=== PATIENT | female | born 1940 | race Caucasian/White ===

== ENCOUNTER 2022-11-15 23:42 | Inpatient (IN) ==
[2022-11-15] MEDS ORDERED: fentaNYL 100 MCG/2 ML VIAL IV ONE (23:45)
--- NOTE | 2022-11-15 23:46 | Emergency Department Note ---
HPI General Chief complaint: Extremity Injury, Lower Stated complaint: hip pain Time Seen by Provider: 11/15/22 23:44 History of Present Illness HPI Narrative: Narrative: Patient is an 82-year-old female with a history of hypertension and COPD who presents to the emergency department due to a fall. She states that she tripped over her dog and fell on her right side. She states that she now has right thigh pain. Patient's son does state that when she fell she did hit the right side of her head. Patient denies loss of consciousness. She denies headache, nausea, and vomiting. She does endorse some back and chest pain that started after fall. She denies any other symptoms at this time. Related Data Home Medications Medication Instructions Recorded Confirmed amlodipine 5 mg tablet 5 mg PO QDAY 01/07/21 06/08/22 clopidogrel 75 mg tablet 75 mg PO QDAY 01/07/21 06/08/22 isosorbide mononitrate 30 mg 30 mg PO QDAY 01/07/21 06/08/22 tablet,extended release 24 hr nitroglycerin 0.4 mg sublingual 0.4 mg sublingual Q5M PRN 01/07/21 06/08/22 tablet aspirin 81 mg tablet,delayed 162 mg PO QDAY 06/11/21 06/08/22 release (Adult Low Dose Aspirin) Previous Rx's Medication Instructions Recorded albuterol sulfate 90 mcg/actuation 2 puff inhalation Q6H PRN 02/12/21 aerosol inhaler shortness of breath or wheezing #8.5 grams fluticasone fur. 100 mcg-umeclid 1 inh inhalation Q24H #60 ea 08/06/21 62.5 mcg-vilant 25 mcg inhalat.powder (Trelegy Ellipta) albuterol sulfate 90 mcg/actuation 2 puff inhalation Q6H PRN 06/08/22 aerosol inhaler shortness of breath or wheezing #8.5 grams Allergies Allergy/AdvReac Type Severity Reaction Status Date / Time Iodinated Contrast Media Allergy Verified 11/16/22 02:19 Review of Systems ROS ROS Narrative: Narrative: Constitutional: Denies fever or weakness Eyes: Denies eye pain or vision change ENT ED: Denies throat pain or rhinorrhea Cardiovascular: Reports chest pain; Denies dyspnea on exertion, orthopnea or edema Respiratory: Denies shortness of breath or cough Gastrointestinal: Denies abdominal pain, nausea, vomiting, diarrhea, constipation, hematochezia or melena Musculoskeletal: Reports back pain; Denies myalgia Integumentary: Denies rash or lesions Neurological: Denies headache, weakness, numbness, confusion, abnormal gait or dizziness PFSH Narrative Patient History Narrative: Narrative: Medical/Surgical/Family History All Active Problems (Updated 11/16/22 @ 02:33 by Dontae Rodriguez MD) Carrie-prosthetic femoral shaft fracture (Acute) Chronic hyperventilation (Acute) Atherosclerotic vascular disease (Acute) Memory loss (Chronic) Dyspnea (Chronic) Chest pain (Chronic) Sneezing (Chronic) Coughing (Chronic) Hoarseness of voice (Chronic) Diarrhea (Chronic) Chest congestion (Chronic) Coagulation defect, unspecified (Chronic) Hypertension (Chronic) Chronic obstructive pulmonary disease with (acute) exacerbation (Chronic) Aortic aneurysm (Chronic) Peripheral vascular disease, unspecified (Chronic) Paresthesia of hand, bilateral (Chronic) Chronic stable angina (Chronic) Dementia in other diseases classified elsewhere without behavioral disturbance (Chronic) COPD (chronic obstructive pulmonary disease) (Chronic) Medical History Aortic aneurysm Atherosclerotic vascular disease Chest congestion Chest pain Chronic hyperventilation Chronic obstructive pulmonary disease with (acute) exacerbation Chronic stable angina Coagulation defect, unspecified COPD (chronic obstructive pulmonary disease) Coughing Dementia in other diseases classified elsewhere without behavioral disturbance Diarrhea Dyspnea Hoarseness of voice Hypertension Memory loss Paresthesia of hand, bilateral Peripheral vascular disease, unspecified Sneezing Surgical History History of femur fracture Repaired History of heart artery stent History of partial hysterectomy History of surgery leg stent splacements History of tonsillectomy Family History Father Heart disease Sister Diabetes Son Atrial fibrillation Social History Smoking Status: Former smoker Alcohol Intake Frequency: a few times a week Substance Use: does not use Exam Narrative Narrative: Narrative: General General appearance: Present alert and in no apparent distress; Absent anxious, appears intoxicated or sleepy Head Head: Present atraumatic and normocephalic Eye Eye: Present EOMI; Absent scleral icterus or nystagmus ENT ENT: Present mucous membranes moist; Absent nasal congestion Neck Neck: Present full ROM and trachea midline; Absent tenderness Chest Chest: Present normal inspection and symmetric chest wall rise; Absent tenderness Respiratory Respiratory: Present normal lung sounds bilaterally; Absent respiratory distre ss, rales/crackles, wheezes, stridor or accessory muscle use Cardiovascular Cardiovascular: Present regular rate, normal rhythm and normal heart sounds Adbominal Abdominal: Present soft and normal bowel sounds; Absent distention or tenderness Extremities Extremities: Present normal inspection, full ROM and tenderness (Right anterior thigh); Absent pedal edema or pretibial edema Back Back: Present normal inspection and full ROM; Absent tenderness, L-S tenderness or spinous process tenderness Neurological Neurological: Present alert and oriented X3; Absent motor sensory deficit Psychiatric Psychiatric: Present normal affect and normal mood Skin Skin: Present warm (WNL), dry and normal color Course Vital Signs Vital signs: Vital Signs Temperature 97.6 F 11/15/22 23:43 Pulse Rate 75 11/15/22 23:43 Respiratory Rate 20 11/15/22 23:43 Blood Pressure 131/65 11/15/22 23:43 Pulse Oximetry (%) 94 11/15/22 23:43 Oxygen Delivery Method Room Air 11/15/22 23:43 Temperature 97.6 F 11/15/22 23:43 Pulse Rate 80 11/16/22 02:18 Respiratory Rate 17 11/16/22 00:27 Blood Pressure 136/51 11/16/22 02:02 Pulse Oximetry (%) 96 11/16/22 02:18 Oxygen Delivery Method Room Air 11/15/22 23:43 [facility] MDM Narrative Medical decision making narrative: Narrative: Patient is an 82-year-old female who presents to the emergency department due to fall. Differential diagnoses include femoral fracture and soft tissue injury. Patient has received fentanyl. She did have a brief period of decreased oxygen saturation. 3 L of oxygen was then given via nasal cannula. Patient's labs demonstrate anemia with a hemoglobin of 9. Femoral x-ray does demonstrate periprosthetic oblique femoral fracture. I have spoken with Dr. Shi who has agreed to see patient. He has requested admission by the hospitalist team. I did speak to Dr. Eldridge and he has also agreed with admission at this time. Lab Data 11/15/22 23:59 Labs: Lab Results 11/15/22 11/15/22 11/16/22 Range/Units 23:59 23:59 00:04 WBC 10.4 (4.5-11.0) K/mcL RBC 3.15 L (3.59-5.38) M/mcL Hgb 9.3 L (11.2-15.7) g/dL Hct 29.5 L (34.1-44.9) % POC Hct 27.0 L (36-48) MCV 93.7 (80.0-100.0) fL MCH 29.5 (26.0-34.0) pg MCHC 31.5 (31.0-36.0) g/dL RDW 13.8 (11.5-14.5) % Plt Count 159 (140-440) K/mcL MPV 10.2 (8.8-12.5) fL Immature Gran % (Auto) 0.5 (0.0-0.5) % Neut % (Auto) 84.1 H (38.0-78.0) % Lymph % (Auto) 9.2 L (15.5-49.0) % [place] % (Auto) 5.3 (1.0-12.0) % Eos % (Auto) 0.6 (0.0-7.0) % Baso % (Auto) 0.3 (0.0-2.0) % Lymph # (Auto) 0.95 L (1.50-4.80) K/mcL [place] # (Auto) 0.55 (0.10-0.90) K/mcL Eos # (Auto) 0.06 (0.00-0.70) K/mcL Baso # (Auto) 0.03 (0.00-0.30) K/mcL Immature Gran # 0.05 (0.00-0.05) K/mcl Absolute Neutrophils 8.71 H (1.80-8.00) K/mcL PT 16.6 H (11.9-14.5) sec INR 1.3 H (0.9-1.1) APTT 28.6 (20.0-37.0) sec POC Sodium 141 (133-145) POC Potassium 3.7 (3.3-5.1) POC Chloride 112 H (96-108) POC Total CO2 19.0 L (22-30) POC BUN 26 H (6-20) POC Creatinine 1.3 H (0.6-1.2) POC Glucose 161 H (70-105) POC WB Ioniz Calcium 1.12 L (1.16-1.32) POC Troponin I (0.00-0.08) 11/16/22 Range/Units 00:12 WBC (4.5-11.0) K/mcL RBC (3.59-5.38) M/mcL Hgb (11.2-15.7) g/dL Hct (34.1-44.9) % POC Hct (36-48) MCV (80.0-100.0) fL MCH (26.0-34.0) pg MCHC (31.0-36.0) g/dL RDW (11.5-14.5) % Plt Count (140-440) K/mcL MPV (8.8-12.5) fL Immature Gran % (Auto) (0.0-0.5) % Neut % (Auto) (38.0-78.0) % Lymph % (Auto) (15.5-49.0) % [place] % (Auto) (1.0-12.0) % Eos % (Auto) (0.0-7.0) % Baso % (Auto) (0.0-2.0) % Lymph # (Auto) (1.50-4.80) K/mcL [place] # (Auto) (0.10-0.90) K/mcL Eos # (Auto) (0.00-0.70) K/mcL Baso # (Auto) (0.00-0.30) K/mcL Immature Gran # (0.00-0.05) K/mcl Absolute Neutrophils (1.80-8.00) K/mcL PT (11.9-14.5) sec INR (0.9-1.1) APTT (20.0-37.0) sec POC Sodium (133-145) POC Potassium (3.3-5.1) POC Chloride (96-108) POC Total CO2 (22-30) POC BUN (6-20) POC Creatinine (0.6-1.2) POC Glucose (70-105) POC WB Ioniz Calcium (1.16-1.32) POC Troponin I < 0.02 (0.00-0.08) EKG Data EKG #1: EKG attestation: Yes I reviewed and interpreted this EKG. EKG results narrative: Normal sinus rhythm with a rate of 64, normal axis, MN 137, QRS of 99, QTc of 481, T wave flattening in lead I, T wave inversion in lead aVL, J-point elevation in V2 of [address] elevation or depression otherwise. Discharge Plan Patient/Caregiver Discharge Instructions Pt seen by DERRICK CAR OPERATOR/PA only: No Clinical Impression: Carrie-prosthetic femoral shaft fracture Patient Disposition: Xfer As Inpt ([facility]) Follow up with: Gabriel Cobb [Primary Care Provider] - Prescriptions: No Action Trelegy Ellipta 100-62.5-25 mcg blister with device 1 inh inhalation Q24H Qty: 60 12RF amlodipine 5 mg tablet 5 mg PO QDAY isosorbide mononitrate 30 mg tablet extended release 24 hr 30 mg PO QDAY clopidogrel 75 mg tablet 75 mg PO QDAY nitroglycerin 0.4 mg tablet, sublingual 0.4 mg sublingual Q5M PRN Rx Instructions: do not exceed 3 doses per episode aspirin [Adult Low Dose Aspirin] 81 mg tablet,delayed release (DR/EC) 162 mg PO QDAY albuterol sulfate 90 mcg/actuation HFA aerosol inhaler 2 puff inhalation Q6H PRN (Reason: shortness of breath or wheezing) Qty: 8.5 12RF albuterol sulfate 90 mcg/actuation HFA aerosol inhaler 2 puff inhalation Q6H PRN (Reason: shortness of breath or wheezing) Qty: 8.5 2RF
[2022-11-15] MEDS ORDERED: 0.9 % SODIUM CHLORIDE 500 ML IV ONE (23:59)
[2022-11-15] MEDS ORDERED: ONDANSETRON 4 MG/2 ML VIAL IV ONE (23:59)
[2022-11-16 00:09] LABS: POC Calcium, Ionized 1.12 (1.16-1.32); POC Creatinine 1.3 (0.6-1.2); POC Potassium 3.7 (3.3-5.1)
[2022-11-16 00:53] LABS: Basophils # (Auto) 0.03 K/mcL (0.00-0.30); Basophils % (Auto) 0.3 % (0.0-2.0); Eosinophils # (Auto) 0.06 K/mcL (0.00-0.70); Eosinophils % (Auto) 0.6 % (0.0-7.0); Hematocrit 29.5 % (34.1-44.9); Hemoglobin 9.3 g/dL (11.2-15.7); Lymphocytes # (Auto) 0.95 K/mcL (1.50-4.80); Lymphocytes % (Auto) 9.2 % (15.5-49.0); Mean Cell Volume 93.7 fL (80.0-100.0); Mean Corpuscular HGB Conc 31.5 g/dL (31.0-36.0); Mean Platelet Volume 10.2 fL (8.8-12.5); Monocytes # (Auto) 0.55 K/mcL (0.10-0.90); Monocytes % (Auto) 5.3 % (1.0-12.0); Neutrophils % (Auto) 84.1 % (38.0-78.0); Platelet Count 159 K/mcL (140-440); RBC 3.15 M/mcL (3.59-5.38); Red Cell Distribution Width 13.8 % (11.5-14.5); WBC 10.4 K/mcL (4.5-11.0)
[2022-11-16 01:00] LABS: INR 1.3 (0.9-1.1); Prothrombin Time 16.6 sec (11.9-14.5)
[2022-11-16 01:09] LABS: Partial Thromboplastin Time 28.6 sec (20.0-37.0)
[2022-11-16] MEDS ORDERED: ONDANSETRON 4 MG/2 ML VIAL IV ONE (01:54)
[2022-11-16] MEDS: morphine 2 MG/ML VIAL IV PRN ×5 (02:15→12:41)
[2022-11-16] MEDS: LACTATED RINGERS 1,000 ML IV SCH ×3 (02:15→20:08)
[2022-11-16] MEDS: IPRATROPIUM/ALBUTEROL 3 ML AMPUL.NEB NEB SCH ×2 (03:45→13:55)
--- NOTE | 2022-11-16 05:22 | Cat Scan Report ---
INDICATION: Fall, hit head COMPARISON: None. TECHNIQUE: Axial noncontrast-enhanced images through the brain. Sagittally and coronally reformatted images. FINDINGS: Examination was initially interpreted by [facility] Cerebral hemispheres:Negative. No intra-axial abnormality. No intra-axial hematoma. No localized mass effect.No acute posttraumatic intra-axial abnormality Brain volume is within normal limits for age. There is extensive white matter abnormality within both cerebral hemispheres. Findings are consistent with small vessel ischemic change in this 82 patient. No posttraumatic intra-axial abnormality. Brainstem and cerebellum:No intra-axial abnormality Extra-axial:No acute hemorrhage. No subdural or epidural hematoma. No subarachnoid hemorrhage. Basilar cisterns are normal Calvarial:No calvarial fracture. No lytic lesion Temporal bones are negative. No destructive lesions Soft tissue, orbits, sinuses:Orbits and visualized facial soft tissues and paranasal sinuses are negative IMPRESSION: 1. No acute intracranial hemorrhage. No acute abnormality 2. Severe white matter abnormality consistent with small vessel ischemic change. The exam was performed using radiation dose optimization techniques including, but not limited to, automated exposure control, adjustment of the mA and/or kV according to patient size and use of iterative reconstruction technique. Interpreted and Authenticated by: Forrest Prabhakar 11/16/22
--- NOTE | 2022-11-16 05:28 | XRay Report ---
INDICATION: Chest pain TECHNIQUE: AP portable semiupright chest x-ray COMPARISON: Previous chest CT scan dated 11/03/2021. Previous chest x-rays dated 12/29/2020, 05/08/2020 FINDINGS: Lungs:Smoking history with significant centrilobular emphysema. This appears unchanged. No acute pulmonary parenchymal infiltrate or detectable mass. Heart, vascular:No significant cardiomegaly. Pulmonary vascularity is normal. No pulmonary edema or pulmonary congestion Mediastinum, juan:There is a rounded mass density in the AP window region on AP chest x-ray. 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 This appears unchanged since previous plain film examination. Contrast-enhanced chest CT scan is recommended for further evaluation with patient with history of chest pain Pleura:No pleural fluid or hemorrhage. No pleural-based mass or calcification Skeletal:Negative. IMPRESSION: 1. Significant emphysema. No focal pulmonary parenchymal infiltrate or mass 2. Focal masslike density in the AP window region. This correlates in location with the penetrating ulcer or dissection on previous CT scan. No detectable interval change since 12/29/2020. CT scan may be helpful for further evaluation. Interpreted and Authenticated by: Forrest Prabhakar 11/16/22
--- NOTE | 2022-11-16 05:40 | XRay Report ---
INDICATION: Fall, Thigh pain/tenderness TECHNIQUE: AP and lateral right femur COMPARISON: None. FINDINGS: Examination was initially interpreted by [facility] Previous right hip arthroplasty. There is a nondisplaced spiral fracture involving the right femoral diaphysis and extending from the tip of the femoral stem. Appearance is consistent with acute nondisplaced periprosthetic fracture. Incidental note is made of a long length of vascular graft extending from the right common iliac artery to the distal superficial femoral artery. Right hemipelvis is suboptimally visualized but there is no detectable fracture. IMPRESSION: 1. Nondisplaced periprosthetic fracture of the right femoral diaphysis 2. Previous right hip arthroplasty Interpreted and Authenticated by: Forrest Prabhakar 11/16/22
--- NOTE | 2022-11-16 07:11 | Internal Med History&Physical ---
HPI History of Present Illness Patient information: Note initiated : 11/16/22 at 6:58 am Service Date, if different from initiated Date: [] Patient: Brianna Layne 82 y/o F admitted on 11/16/22 for hip pain. Chief Complaint: [] History of present illness: Ms. Layne is a 82 year old pleasant female with history of CAD status post PCI, chronic stable angina, aortic aneurysm, peripheral arterial disease with multiple stents in right lower extremity, hypertension, COPD not on oxygen therapy, presented after a mechanical fall. She lives with her son, renovations are done at home. Patient tripped over her dog falling onto the hardwood floor and immediately had right thigh pain. Patient did not lose any consciousness. Patient has history of right hip arthroplasty after a fall 20 years ago. X-ray right leg showed nondisplaced periprosthetic fracture of right femoral diaphysis. Currently patient reports pain is not controlled. Dr. Shi from [facility] is planning for surgery today. Patient is NPO. Review of system Constitutional: Denies fever or weakness Eyes: Denies eye pain or vision change ENT ED: Denies throat pain or rhinorrhea Cardiovascular: Reports no chest pain; Denies dyspnea on exertion, orthopnea or edema Respiratory: Denies shortness of breath or cough Gastrointestinal: Denies abdominal pain, nausea, vomiting, diarrhea, constipation, hematochezia or melena Musculoskeletal: Reports back pain; reports right thigh pain which is controlled Integumentary: Denies rash or lesions Neurological: Denies headache, weakness, numbness, confusion, abnormal gait or dizziness Physical examination General General appearance: Present alert and in no apparent distress; Absent anxious, appears intoxicated or sleepy Head Head: Present atraumatic and normocephalic Eye Eye: Present EOMI; Absent scleral icterus or nystagmus ENT ENT: Present mucous membranes moist; Absent nasal congestion Neck Neck: Present full ROM and trachea midline; Absent tenderness Chest Chest: Present normal inspection and symmetric chest wall rise; Absent tenderness Respiratory Respiratory: Present normal lung sounds bilaterally; Absent respiratory distress, rales/crackles, wheezes, stridor or accessory muscle use Cardiovascular Cardiovascular: Present regular rate, normal rhythm and normal heart sounds Adbominal Abdominal: Present soft and normal bowel sounds; Absent distention or tenderness Extremities Extremities: Present normal inspection, tenderness right thigh, no bruising or ecchymosis. Distal neurovascular intact Back Back: Present normal inspection and full ROM; Absent tenderness, L-S tenderness or spinous process tenderness Neurological Neurological: Present alert and oriented X3; Absent motor sensory deficit Psychiatric Psychiatric: Present normal affect and normal mood Skin Skin: Present warm (WNL), dry and normal color Assessment and plan Periprosthetic fracture of right femur, Ortho plans to take her for surgery today. Patient is n.p.o. patient has CAD but currently reports no chest pain. Troponin on admission was negative. EKG without any acute findings. Benefits of surgery outweighs risk. Patient can proceed with surgery. Acute hypoxic respiratory failure, after receiving dose of opioid likely due to hypoventilation COPD, patient takes Trelegy Ellipta and albuterol as needed at home. Continue with DuoNebs and Ellipta CAD status post PCI. Patient has chronic stable angina. At home she takes aspirin, Plavix, isosorbide mononitrate 30 g daily and as needed nitroglycerin Chronic anemia. Hemoglobin 9.3 on admission. No indications of transfusion unless requested by surgery. CKD stage III. Creatinine at baseline. Peripheral arterial disease, antiplatelet therapy on hold. Hypertension, on amlodipine at home, IV hydralazine as needed DVT prophylaxis, SCDs, CODE STATUS. Patient wishes to be full code PFSH PFSH All Active Problems (Updated 11/16/22 @ 02:33 by Dontae Rodriguez MD) Carrie-prosthetic femoral shaft fracture (Acute) Chronic hyperventilation (Acute) Atherosclerotic vascular disease (Acute) Memory loss (Chronic) Dyspnea (Chronic) Chest pain (Chronic) Sneezing (Chronic) Coughing (Chronic) Hoarseness of voice (Chronic) Diarrhea (Chronic) Chest congestion (Chronic) Coagulation defect, unspecified (Chronic) Hypertension (Chronic) Chronic obstructive pulmonary disease with (acute) exacerbation (Chronic) Aortic aneurysm (Chronic) Peripheral vascular disease, unspecified (Chronic) Paresthesia of hand, bilateral (Chronic) Chronic stable angina (Chronic) Dementia in other diseases classified elsewhere without behavioral disturbance (Chronic) COPD (chronic obstructive pulmonary disease) (Chronic) Medical History Aortic aneurysm Atherosclerotic vascular disease Chest congestion Chest pain Chronic hyperventilation Chronic obstructive pulmonary disease with (acute) exacerbation Chronic stable angina Coagulation defect, unspecified COPD (chronic obstructive pulmonary disease) Coughing Dementia in other diseases classified elsewhere without behavioral disturbance Diarrhea Dyspnea Hoarseness of voice Hypertension Memory loss Paresthesia of hand, bilateral Peripheral vascular disease, unspecified Sneezing Surgical History History of femur fracture Repaired History of heart artery stent History of partial hysterectomy History of surgery leg stent splacements History of tonsillectomy Family History Father Heart disease Sister Diabetes Son Atrial fibrillation Social History marital status: occupational status: retired smoking status: Former smoker quit date: 08/22/19 pack-years: 50 alcohol intake frequency: a few times a week substance use type: does not use MEDS/ALLERGIES Home Medications and Allergies Home Medications Medication Instructions Recorded Confirmed Type amlodipine 5 mg tablet 5 mg PO QDAY 01/07/21 06/08/22 History clopidogrel 75 mg tablet 75 mg PO QDAY 01/07/21 06/08/22 History isosorbide mononitrate 30 mg 30 mg PO QDAY 01/07/21 06/08/22 History tablet,extended release 24 hr nitroglycerin 0.4 mg sublingual 0.4 mg sublingual Q5M PRN 01/07/21 06/08/22 History tablet albuterol sulfate 90 mcg/actuation 2 puff inhalation Q6H PRN 02/12/21 06/08/22 Rx aerosol inhaler shortness of breath or wheezing #8.5 grams aspirin 81 mg tablet,delayed 162 mg PO QDAY 06/11/21 06/08/22 History release (Adult Low Dose Aspirin) fluticasone fur. 100 mcg-umeclid 1 inh inhalation Q24H #60 ea 08/06/21 06/08/22 Rx 62.5 mcg-vilant 25 mcg inhalat.powder (Trelegy Ellipta) albuterol sulfate 90 mcg/actuation 2 puff inhalation Q6H PRN 06/08/22 06/08/22 Rx aerosol inhaler shortness of breath or wheezing #8.5 grams Allergies Allergy/AdvReac Type Severity Reaction Status Date / Time Iodinated Contrast Media Allergy Severe face Verified 03/28/23 06:52 swelling EXAM Constitutional Vitals: Temp Pulse Resp BP Pulse Ox O2 Del Method O2 Flow Rate 98.4 F 95 H 20 182/68 98 Nasal Cannula 2 11/16/22 03:13 11/16/22 03:13 11/16/22 03:13 11/16/22 03:13 11/16/22 03:13 11/16/22 03:13 11/16/22 03:00 DATA Data Completed and Pending Labs: Labs from last 24 hours 11/16/22 11/16/22 11/15/22 00:12 00:04 23:59 WBC RBC Hgb Hct POC Hct 27.0 L MCV MCH MCHC RDW Plt Count MPV Immature Gran % (Auto) Neut % (Auto) Lymph % (Auto) [place] % (Auto) Eos % (Auto) Baso % (Auto) Lymph # (Auto) [place] # (Auto) Eos # (Auto) Baso # (Auto) Immature Gran # Absolute Neutrophils PT 16.6 H INR 1.3 H APTT 28.6 POC Sodium 141 POC Potassium 3.7 POC Chloride 112 H POC Total CO2 19.0 L POC BUN 26 H POC Creatinine 1.3 H POC Glucose 161 H POC WB Ioniz Calcium 1.12 L POC Troponin I < 0.02 11/15/22 23:59 WBC 10.4 RBC 3.15 L Hgb 9.3 L Hct 29.5 L POC Hct MCV 93.7 MCH 29.5 MCHC 31.5 RDW 13.8 Plt Count 159 MPV 10.2 Immature Gran % (Auto) 0.5 Neut % (Auto) 84.1 H Lymph % (Auto) 9.2 L [place] % (Auto) 5.3 Eos % (Auto) 0.6 Baso % (Auto) 0.3 Lymph # (Auto) 0.95 L [place] # (Auto) 0.55 Eos # (Auto) 0.06 Baso # (Auto) 0.03 Immature Gran # 0.05 Absolute Neutrophils 8.71 H PT INR APTT POC Sodium POC Potassium POC Chloride POC Total CO2 POC BUN POC Creatinine POC Glucose POC WB Ioniz Calcium POC Troponin I A/P Time Spent With Patient Time: Total time spent is greater than 50% in coordination of care (as documented) at patient's floor/unit and/or counseling patient: Initial: Total time with patient: 55 - 74 minutes
[2022-11-16] MEDS ORDERED: hydrALAZINE 20 MG/ML VIAL IV PRN (07:18)
[2022-11-16] MEDS ORDERED: oxyCODONE HCL 5 MG TABLET PO PRN (07:20)
[2022-11-16] MEDS ORDERED: ONDANSETRON 4 MG/2 ML VIAL IV PRN ×2 (07:20→18:32)
[2022-11-16] MEDS ORDERED: traZODone HCL 50 MG TABLET PO PRN (07:20)
[2022-11-16] MEDS ORDERED: MAGNESIUM HYDROXIDE 30 ML ORAL.SUSP PO PRN (07:20)
[2022-11-16 08:12] LABS: Basophils # (Auto) 0.01 K/mcL (0.00-0.30); Basophils % (Auto) 0.2 % (0.0-2.0); Eosinophils # (Auto) 0 K/mcL (0.00-0.70); Eosinophils % (Auto) 0 % (0.0-7.0); Hematocrit 26.8 % (34.1-44.9); Hemoglobin 8.6 g/dL (11.2-15.7); Lymphocytes # (Auto) 0.41 K/mcL (1.50-4.80); Lymphocytes % (Auto) 8.1 % (15.5-49.0); Mean Cell Volume 93.1 fL (80.0-100.0); Mean Corpuscular HGB Conc 32.1 g/dL (31.0-36.0); Mean Platelet Volume 10.3 fL (8.8-12.5); Monocytes # (Auto) 0.34 K/mcL (0.10-0.90); Monocytes % (Auto) 6.7 % (1.0-12.0); Neutrophils % (Auto) 84.6 % (38.0-78.0); Platelet Count 113 K/mcL (140-440); RBC 2.88 M/mcL (3.59-5.38); Red Cell Distribution Width 13.9 % (11.5-14.5); WBC 5.1 K/mcL (4.5-11.0)
[2022-11-16 08:45] LABS: Blood Urea Nitrogen 23 mg/dL (8-23); Carbon Dioxide 21 mmol/L (22-30); Chloride 109 mmol/L (96-108); Glomerular Filtration Rate 46; Glucose 119 mg/dL (70-105)
[2022-11-16] MEDS ORDERED: IPRATROPIUM/ALBUTEROL 3 ML AMPUL.NEB NEB SCH (13:00)
[2022-11-16] MEDS ORDERED: IPRATROPIUM/ALBUTEROL 3 ML AMPUL.NEB NEB PRN ×2 (13:39→18:32)
[2022-11-16] MEDS: 0.9 % SODIUM CHLORIDE 10 ML SYRINGE IV SCH (13:55)
[2022-11-16] MEDS ORDERED: ALBUTEROL SULFATE 60 PUFF INHALER INH PRN (14:38)
[2022-11-16] MEDS ORDERED: NITROGLYCERIN 0.4 MG TAB.SUBL SL PRN (14:38)
[2022-11-16] MEDS ORDERED: morphine 2 MG/ML VIAL IV PRN (14:51)
[2022-11-16] MEDS ORDERED: ceFAZolin 2 GM in DEXTROSE 5% IN WATER 50 ML IV SCH ×2 (16:15→19:00)
[2022-11-16] MEDS ORDERED: KETAMINE 50 MG/ML Syringe (ANEST) IV ONE (16:20)
[2022-11-16] MEDS ORDERED: DEXAMETHASONE 10 MG/ML VIAL ONE (16:20)
[2022-11-16] MEDS ORDERED: LIDOCAINE HCL/PF 100 MG/5 ML SYRINGE IV ONE (16:20)
[2022-11-16] MEDS ORDERED: PHENYLephrine 1 MG/10 ML SYRINGE (ANEST) ONE (16:20)
[2022-11-16] MEDS ORDERED: ONDANSETRON 4 MG/2 ML VIAL ONE (16:20)
[2022-11-16] MEDS ORDERED: MAGNESIUM SULFATE 2 GM/50 ML BAG IV ONE (16:20)
[2022-11-16] MEDS ORDERED: ePHEDrine 50 MG/5 ML SYRINGE (ANEST) IV ONE (16:20)
[2022-11-16] MEDS ORDERED: ROPIVACAINE HCL/PF 30 ML VIAL IJ ONE (16:20)
[2022-11-16] MEDS ORDERED: VASOPRESSIN 20 UNIT/ML VIAL ONE (16:20)
[2022-11-16] MEDS ORDERED: PROPOFOL 200 MG/20 ML VIAL IV ONE (16:20)
[2022-11-16] MEDS ORDERED: 0.9 % SODIUM CHLORIDE 250 ML IV SCH (17:30)
[2022-11-16] MEDS ORDERED: MEPERIDINE 25 MG/ML VIAL IV PRN (18:32)
[2022-11-16] MEDS ORDERED: NALOXONE HCL 0.4 MG/ML VIAL IV PRN (18:32)
[2022-11-16] MEDS ORDERED: ACETAMINOPHEN 1,000 MG/100 ML BAG IV ONE (18:32)
[2022-11-16] MEDS ORDERED: fentaNYL 100 MCG/2 ML VIAL IV PRN (18:32)
[2022-11-16] MEDS ORDERED: BENZOCAINE/MENTHOL 1 LOZENGE PO PRN (18:32)
[2022-11-16] MEDS ORDERED: LACTATED RINGERS 250 ML IV PRN (18:32)
[2022-11-16] MEDS ORDERED: METHOCARBAMOL 1,000 MG/10 ML VIAL IV PRN (18:32)
[2022-11-16] MEDS ORDERED: diphenhydrAMINE 50 MG/ML VIAL IV PRN (18:32)
[2022-11-16] MEDS ORDERED: PROMETHAZINE 25 MG/ML VIAL IV PRN (18:32)
[2022-11-16] MEDS ORDERED: LACTATED RINGERS 1,000 ML IV SCH (18:45)
--- NOTE | 2022-11-16 18:58 | Brief Operative Note ---
Brief Operative Note Date of procedure: 11/16/22 Pre-op diagnosis: Right periprosthetic closed femur fracture, retained cerclage cables Post-op diagnosis: same Procedure: Open treatment internal fixation of right periprosthetic femoral shaft fracture Hardware removal deep of 2 prior cerclage cables Grafts/Implants: Yes (Synthes periprosthetic femoral hook plate) Findings: extreme osteoporosis with continued fragmentation during the procedure that resulted in fracture of nearly the entire femoral shaft Complications: other (continued fracture fragmentation as procedure progressed) Surgeon: Mega Shi [employer] Manager: Terrell Mckenna Estimated blood loss (cc): 1,200 Specimens Removed/Pathology: none sent Condition: other (guarded) Disposition: PACU
[2022-11-16] MEDS ORDERED: FLEETS ADULT ENEMA PR PRN (18:59)
[2022-11-16] MEDS ORDERED: morphine 4 MG/ML VIAL IV PRN (18:59)
[2022-11-16] MEDS ORDERED: BISACODYL 10 MG SUPP.RECT PR PRN (18:59)
[2022-11-16] MEDS ORDERED: POLYETHYLENE GLYCOL 3350 17 GM PACKET PO PRN (18:59)
[2022-11-16] MEDS ORDERED: TRANEXAMIC ACID 1,000 MG/10 ML VIAL IV ONE (18:59)
[2022-11-16] MEDS ORDERED: TRANEXAMIC ACID 1,000 MG/10 ML VIAL ONE (20:12)
[2022-11-16] MEDS ORDERED: 0.9 % SODIUM CHLORIDE 1,000 ML IV ONE (21:49)
[2022-11-16 22:47] LABS: Hematocrit 24.4 % (34.1-44.9); Hemoglobin 7.5 g/dL (11.2-15.7)
[2022-11-17] MEDS: ceFAZolin 1 GM VIAL IV SCH ×3 (00:04→08:28)
[2022-11-17] MEDS: ceFAZolin 1 GM VIAL ONE ×2 (00:17→04:16)
[2022-11-17] MEDS: DOCUSATE SODIUM 100 MG CAPSULE PO SCH ×3 (00:21→20:51)
[2022-11-17] MEDS: SENNOSIDES 1 TABLET PO SCH ×2 (00:21→20:46)
[2022-11-17] MEDS: 0.9 % SODIUM CHLORIDE 10 ML SYRINGE IV SCH ×4 (00:23→20:52)
[2022-11-17] MEDS: ACETAMINOPHEN 325 MG TABLET PO PRN (00:53)
--- NOTE | 2022-11-17 05:17 | XRay Report ---
INDICATION: ORIF of right periprothestic femur fracture TECHNIQUE: Intraoperative fluoroscopy and spot films utilized by Dr. Shi. 0.7 minutes fluoroscopy and 2.49 mGy exposure were used. Plate and screw fixation utilized for treatment of a periprosthetic right femoral fracture. Spot films demonstrate anatomic alignment IMPRESSION: Intraoperative fluoroscopy and spot films as above Interpreted and Authenticated by: Forrest Prabhakar 11/17/22
[2022-11-17] MEDS: morphine 4 MG/ML VIAL IV PRN ×2 (06:03→09:15)
[2022-11-17 06:30] LABS: Basophils # (Auto) 0.01 K/mcL (0.00-0.30); Basophils % (Auto) 0.2 % (0.0-2.0); Eosinophils # (Auto) 0 K/mcL (0.00-0.70); Eosinophils % (Auto) 0 % (0.0-7.0); Hematocrit 21.8 % (34.1-44.9); Hemoglobin 6.6 g/dL (11.2-15.7); Lymphocytes # (Auto) 0.55 K/mcL (1.50-4.80); Lymphocytes % (Auto) 8.3 % (15.5-49.0); Mean Corpuscular HGB Conc 30.3 g/dL (31.0-36.0); Mean Platelet Volume 10.9 fL (8.8-12.5); Monocytes # (Auto) 0.51 K/mcL (0.10-0.90); Monocytes % (Auto) 7.7 % (1.0-12.0); Neutrophils % (Auto) 83.3 % (38.0-78.0); Platelet Count 86 K/mcL (140-440); RBC 2.27 M/mcL (3.59-5.38); Red Cell Distribution Width 15.1 % (11.5-14.5); WBC 6.6 K/mcL (4.5-11.0)
[2022-11-17 06:40] LABS: ALT/SGPT 6 U/L (<40); AST/SGOT 15 U/L (<32); Albumin 2.5 gm/dL (3.2-5.2); Albumin/Globulin Ratio 1.9 (1.0-2.3); Alkaline Phosphatase 59 U/L (39-117); Bilirubin,Total 0.2 mg/dL (0.1-1.0); Blood Urea Nitrogen 22 mg/dL (8-23); Calcium 7.1 mg/dL (8.6-10.4); Carbon Dioxide 18 mmol/L (22-30); Chloride 109 mmol/L (96-108); Globulin 1.3 gm/dL (2.2-3.7); Glomerular Filtration Rate 46; Glucose 129 mg/dL (70-105)
[2022-11-17] MEDS ORDERED: 0.9 % SODIUM CHLORIDE 250 ML IV SCH (08:15)
--- NOTE | 2022-11-17 08:18 | Operative Note ---
DATE OF OPERATION: 11/16/2022 DATE OF PROCEDURE: 11/16/2022 PREOPERATIVE DIAGNOSIS: Right closed periprosthetic femoral shaft fracture with retained cerclage cables x2. POSTOPERATIVE DIAGNOSIS: Right closed periprosthetic femoral shaft fracture with retained cerclage cables x2. PROCEDURE PERFORMED: 1. Open treatment and internal fixation of the closed, periprosthetic femoral shaft fracture using a long Synthes hook plate. 2. Hardware removal, deep, of two prior retained cerclage cables. SURGEON: Mega Shi MD BEATER DUMPER: Emmanuel Mckenna PA-C. This providers expertise and technical skill were required throughout the case. The PA assisted with preoperative coordination, intraoperative retraction, wound closure, and dressing and splint application, as well as postoperative documentation and care coordination. ANESTHESIA: General. DRAINS: None. SPECIMENS: Two removed cerclage cables, which were discarded. ESTIMATED BLOOD LOSS: 1200 mL. COMPLICATIONS: Continued bone fragmentation as the procedure progressed, requiring continued extension of the incision for getting to non-fractured bone. POSTOPERATIVE CONDITION: Guarded. INDICATIONS FOR SURGERY: This is an 82-year-old female who has multiple prior history of surgical procedures on her right lower extremity for fracture of her femur, which was, it sounds like, fixed with an intramedullary dasha. She then had this removed and had a total hip arthroplasty. Those procedures were a number of years ago, it sounds like around 15 years ago. She sustained a ground level fall in the middle of the night last night and had severe pain and inability to bear weight. X-rays obtained showed profound osteoporosis with a total hip arthroplasty and fracture that appeared to extend from the tip of the stem distally into the shaft. FINDINGS AT SURGERY: Her osteoporosis was extreme and fracture continued to fragment both proximal and distally during the procedure and making it very difficult to get adequate fixation above and below the fracture. Post-fixation showed what appeared to be reasonable hardware position and fracture alignment with reasonable stability. PROCEDURE IN DETAIL: The patient had been seen in the preoperative holding, and informed consent had been obtained after discussion of risks and benefits of surgery. Risks including, but not limited to, bleeding, possibly requiring transfusion; infection, possibly requiring implant removal and prolonged IV antibiotics; injury to nerves, blood vessels, other surrounding structures, anesthetic risks; nonunion or malunion of the fracture; failure of hardware fixation, this being particularly risky given her severe osteoporosis, possibility of needing further surgery, DVT, pulmonary embolus risks. She understood these risks and wished to proceed. Correct operative site was marked and the patient was taken to the operating room. General anesthesia induced. She was very carefully positioned onto the fracture table and the right lower extremity was placed in a boot in some mild traction. The left lower extremity was flexed and abducted out of the way and padded. Fluoroscopy was brought in and x-rays to verify fracture still appeared to be a nondisplaced. The right lower extremity was then carefully prepped and draped in normal sterile fashion and a timeout was performed verifying finding patient name, operative site, and plan. I used fluoroscopy to identify what I felt would be the distal extent of my incision and proximally up to about the level of the lesser trochanter and then I made my incision using her prior scar and then extending distally with a scalpel through skin and subcutaneous tissue. She had been on Eliquis and aspirin anticoagulation and we encountered brisk bleeding throughout the muscle as we continued down. I attempted to obtain hemostasis, but this was very difficult as she was just steadily oozing from throughout the wound. We had incised through the IT band with a Bovie and then incised through the vastus lateralis and continued with the Bovie through the vastus lateralis muscle. I tried to pack off bleeders as I could and continued down onto bone. We were eventually able to get some hemostasis, so there was not as brisk bleeding, but there was continued steady oozing. I exposed the fracture site and then exposed proximally where the cerclage cables were. As these would impede plate placement over the bone, I went ahead and made a cut and then these were grown into the bone somewhat, so I tried to release these. I was able to release anterior and posterior surfaces, but it was difficult to get the medial side released. I pulled with pliers on the one end of the cable and at this point, the fracture began fragmenting into multiple fragments and the cable did not release. I ended up having to expose over on the medial side of the bone and take a Mayer elevator to release the cable from the bone on the medial side and then I was eventually able to remove the cable. I had to repeat this process with the other cable as well to get it to be removed. At this point, we visualized that the fracture had propagated proximally up to almost the level of the lesser trochanter and it had propagated distally as well, significantly. Her bone quality again was extremely fragile and we ended up choosing the longest Synthes hook plate possible as we needed all the fixation we could get. I ended up hooking this over the trochanter proximally and then reducing the plate to bone and holding this provisionally with clamps. I checked with fluoroscopy to verify we had reasonable position. It appeared we were centered on the bone. I then started distally, placing bicortical locking screws and continued this all the way up until we encountered the hip stem. I then tried to get a couple of the anterior and posterior screws of the smaller size to try and get around the stem. I was able to get several of these, but in most of these holes the stem was blocking the screws. I then started placing cerclage cables, two of them. I was able to do a threaded eyelid into the plate and passed these through the eyelet. These were tensioned to 50 kilograms and crimped and cut. I then went proximally farther just below the lesser trochanter. This did not have a screw hole that I could thread the eyelet and so we did a cerclage around the plate and then finally I went up to the slot in the hook and placed a crimp within that and passed a cable around the femur just above the lesser trochanter and again tensioned these to 50 kilograms and cut. At this point, I felt like I had as good a fixation as possible, and had no further holes distally for fixation, so we went ahead and took final fluoro images, AP and lateral views and showed what appeared to be reasonable fracture reduction and hardware position. We irrigated copiously with IrriSept, after waiting a minute, irrigated with saline. I tried to repair the vastus fascia with running #1 Vicryl stitches, one started centrally and running distal and once started centrally and running proximal. We then used a Stratafix to close the IT band in 2 running stitches again starting in the mid portion. More IrriSept was irrigated, after a minute more saline was irrigated and then 2-0 Monocryl was used for subcutaneous, edouard for skin. Xeroform and a sterile dressing were applied. Silver Mepilex dressings were placed and then patient was awakened and transferred to recovery in guarded condition. DWAYNE:nikita Job ID: [id number] Doc ID: [id number] Mega Shi MD
[2022-11-17] MEDS: ISOSORBIDE MONONITRATE 30 MG TAB.XL.24H PO SCH (08:28)
[2022-11-17] MEDS ORDERED: amLODIPine 10 MG TABLET PO SCH (09:00)
[2022-11-17] MEDS: Fluticasone-Umeclidinium-Vilanterol [Trelegy Ellipta] Inhaler INH SCH (09:20)
[2022-11-17] MEDS: LACTATED RINGERS 1,000 ML IV SCH ×3 (09:21→16:32)
[2022-11-17] MEDS: ACETAMINOPHEN 650 MG/65 ML BAG IV PRN ×2 (11:13→17:25)
--- NOTE | 2022-11-17 11:24 | Internal Med Progress Note ---
SUBJECTIVE Subjective Patient information: Note initiated : 11/17/22 at 11:14 am Service Date, if different from initiated Date: [] Patient: Brianna Layne 82 y/o F admitted on 11/16/22 for Right Open Reduction & Internal Fixation of. Chief Complaint: [] Interval history: Ms. Layne is a 82 year old pleasant female with history of CAD status post PCI, chronic stable angina, aortic aneurysm, peripheral arterial disease with multiple stents in right lower extremity, hypertension, COPD not on oxygen therapy, presented after a mechanical fall. She lives with her son, renovations are done at home. Patient tripped over her dog falling onto the hardwood floor and immediately had right thigh pain. Patient did not lose any consciousness. Patient has history of right hip arthroplasty after a fall 20 years ago. X-ray right leg showed nondisplaced periprosthetic fracture of right femoral diaphysis. Currently patient reports pain is not controlled. Dr. Shi from [facility] is planning for surgery today. Patient is NPO. 11/17: s/p ORIF and old hardware removal by orthopedic surgeons Dr. Shi on 11/16. Estimated blood loss 1200 cc. Status post 2 unit PRBC transfusions yesterday and evening, and hemoglobin hematocrit this morning 6.6/21.8. Also soft blood pressure with MAP 60 mmHg this morning. Patient is coming of 9 out of 10 right hip pain. She is on 2 L/min nasal cannula oxygen and she denies any shortness of breath. She has poor appetite but denies any nausea or vomiting. She has no bowel movement yet since the surgery. Transferred to stepdown ICU. Transfuse another 2 unit PRBC. We will recheck H&H this evening. Continue LR at 100 cc/h for volume support. Encourage patient to eat and drink. We will add nonnarcotics for pain control including IV Tylenol and Toradol. DC Norvasc due to soft blood pressure. Physical and occupational therapy evaluation and treatment. Overall condition is guarded. Constitutional Vitals: Vital Signs Temp Pulse Resp BP Pulse Ox O2 Del Method O2 Flow Rate 36.7 C 87 23 H 86/49 94 Nasal Cannula 2 11/17/22 10:30 11/17/22 10:38 11/17/22 10:38 11/17/22 10:38 11/17/22 10:38 11/17/22 10:38 11/17/22 10:38 Period Temp Pulse Resp BP Sys/Hernandez Pulse Ox O2 Del Method O2 Flow Rate Last 24 Hr 35.4 C-37.9 C 34-96 9-23 75-132/40-59 2-100 Nasal Cannula- Oxymask 2-10 Intake and Output 11/16/22 11/17/22 11/17/22 19:59 03:59 11:59 Intake Total 875 4903 480 Output Total 500 1275 475 Balance 375 3628 5 Weight 58.57 kg Patient Weight 11/18/22 03:59 Weight 58.57 kg Intake & Output: Intake & Output 11/16/22 11/17/22 11/17/22 19:59 03:59 11:59 Intake Total 875 4903 480 Output Total 500 1275 475 Balance 375 3628 5 Weight 58.57 kg Intake: IV 50 1903 Sodium Chloride 0.9% 1,000 ml @ 1000 Wide Open IV BOLUS ONE Rx#: [id number] Lactated Ringers 1,000 ml @ 100 903 mls/hr IV .Q10H [facility] Rx#: [id number] Ancef 2 gm In Dextrose 5% in 50 Water 50 ml @ 100 mls/hr IV PREOP [facility] Rx#:[id number] Oral 480 Blood Product 825 IV - Manual Only 3000 Output: Urine Catheter Amount 500 275 475 Estimated Blood Loss 1000 Other: Meal NPO Urine Appearance Clear Clear Uretheral (Roldan) Clear Clear Urine Color Yellow Dark Lisy Light Lisy Uretheral (Roldan) Yellow Dark Yellow Head Head exam: Present atraumatic and normal inspection Eye Eye exam: Present normal appearance ENT ENT exam: Present mucous membranes moist, normal exam and normal external ear exam Additional comments: Nasal cannula in place Neck Neck exam: Present normal inspection Respiratory Respiratory exam: Present normal respiratory exam Cardiovascular Cardiovascular exam: Present normal rate and rhythm GI/Abdominal GI/Abdominal exam: Present normal bowel sounds Additional comments: Roldan catheter in place Extremities Exam Extremities exam: Present tenderness; Absent full ROM or normal inspection Additional comments: Right lateral thigh covered by surgical dressing Tenderness to palpation Active and passive ROMs limited by pain Back Exam Back exam: Present normal inspection Neurological Exam Neurological exam: Present alert and oriented X3 Skin Skin exam: Present intact and warm OBJ DATA Labs 11/17/22 05:36 11/17/22 05:36 Labs: Abnormal Lab Results 11/17/22 11/17/22 11/16/22 05:36 05:36 22:13 RBC 2.27 L Hgb 6.6 L* 7.5 L Hct 21.8 L 24.4 L POC Hct MCHC 30.3 L RDW 15.1 H Plt Count 86 L Neut % (Auto) 83.3 H Lymph % (Auto) 8.3 L Lymph # (Auto) 0.55 L Absolute Neutrophils PT INR POC Chloride Chloride 109 H Carbon Dioxide 18 L POC Total CO2 POC BUN POC Creatinine Glucose 129 H POC Glucose Calcium 7.1 L POC WB Ioniz Calcium Total Protein 3.8 L Albumin 2.5 L Globulin 1.3 L 11/16/22 11/16/22 11/16/22 07:22 07:22 00:04 RBC 2.88 L Hgb 8.6 L Hct 26.8 L POC Hct 27.0 L MCHC RDW Plt Count 113 L Neut % (Auto) 84.6 H Lymph % (Auto) 8.1 L Lymph # (Auto) 0.41 L Absolute Neutrophils PT INR POC Chloride 112 H Chloride 109 H Carbon Dioxide 21 L POC Total CO2 19.0 L POC BUN 26 H POC Creatinine 1.3 H Glucose 119 H POC Glucose 161 H Calcium 8.0 L POC WB Ioniz Calcium 1.12 L Total Protein Albumin Globulin 11/15/22 11/15/22 23:59 23:59 RBC 3.15 L Hgb 9.3 L Hct 29.5 L POC Hct MCHC RDW Plt Count Neut % (Auto) 84.1 H Lymph % (Auto) 9.2 L Lymph # (Auto) 0.95 L Absolute Neutrophils 8.71 H PT 16.6 H INR 1.3 H POC Chloride Chloride Carbon Dioxide POC Total CO2 POC BUN POC Creatinine Glucose POC Glucose Calcium POC WB Ioniz Calcium Total Protein Albumin Globulin Meds: Medications Acetaminophen (Acetaminophen 325 Mg Tablet) 650 mg PO Q6HP PRN; Protocol PRN Reason: Per Pain Protocol/Fever > 101 Last Admin: 11/17/22 00:53 Dose: 650 mg Albuterol Sulfate (Albuterol Sulfate 60 Puff Inhaler) 2 puff INH Q6H PRN PRN Reason: shortness of breath or wheezing Albuterol/Ipratropium (Ipratropium/Albuterol 3 Ml Ampul.Neb) 3 ml NEB Q6HRT PRN PRN Reason: Wheezing Stop: 02/23/23 13:38 Bisacodyl (Bisacodyl 10 Mg Supp.Rect) 10 mg NE Q2-3DAYS PRN PRN Reason: Constipation Docusate Sodium (Docusate Sodium 100 Mg Capsule) 100 mg PO BID [facility] Last Admin: 11/17/22 09:19 Dose: Not Given Hydralazine HCl (Hydralazine 20 Mg/Ml Vial) 10 mg IV Q4-6HP PRN PRN Reason: Hypertension Lactated Ringer's (Lactated Ringers) 1,000 mls @ 100 mls/hr IV .Q10H [facility] Last Admin: 11/17/22 09:21 Dose: Not Given Sodium Chloride (Sodium Chloride 0.9%) 250 mls @ 20 mls/hr IV .[id number] [facility] Stop: 11/17/22 20:44 Last Admin: 11/17/22 09:20 Dose: 20 mls/hr Acetaminophen (Ofirmev) 650 mg in 65 mls @ 130 mls/hr IV Q6HP PRN; Protocol PRN Reason: PAIN/FEVER > 101 Isosorbide Mononitrate (Isosorbide Mononitrate 30 Mg Tab.Xl.24h) 30 mg PO QDAY [facility] Last Admin: 11/17/22 08:28 Dose: 30 mg Ketorolac Tromethamine (Ketorolac 30 Mg/Ml Vial) 30 mg IV Q6HP PRN PRN Reason: Per Pain Protocol Stop: 11/19/22 10:47 Magnesium Hydroxide (Magnesium Hydroxide 30 Ml Oral.Susp) 30 ml PO DAILYP PRN PRN Reason: Constipation Morphine Sulfate (Morphine 4 Mg/Ml Vial) 2 - 6 mg IV Q1HP PRN; Protocol PRN Reason: Per Pain Protocol Last Admin: 11/17/22 09:15 Dose: 2 mg Nitroglycerin (Nitroglycerin 0.4 Mg Tab.Subl) 0.4 mg SL Q5M PRN PRN Reason: Chest Pain Ondansetron HCl (Ondansetron 4 Mg/2 Ml Vial) 4 mg IV Q6HP PRN PRN Reason: Nausea And Vomiting Oxycodone HCl (Oxycodone Hcl 5 Mg Tablet) 5 mg PO Q4HP PRN; Protocol PRN Reason: Per Pain Protocol Last Admin: 11/17/22 05:35 Dose: 5 mg Fluticasone- Umeclidinium- Vilanterol [Trelegy Ellipta] Inhaler 1 dose INH DAILY [facility] Last Admin: 11/17/22 09:20 Dose: Not Given Polyethylene Glycol (Polyethylene Glycol 3350 17 Gm Packet) 17 gm PO DAILYP PRN PRN Reason: Constipation Senna (Sennosides 1 Tablet) 2 tab PO HS [facility] Last Admin: 11/17/22 00:21 Dose: Not Given Sodium Biphosphate/Sodium Phosphate (Fleets Adult Enema) 1 dose NE Q3-4DAYS PRN PRN Reason: Constipation Sodium Chloride (0.9 % Sodium Chloride 10 Ml Syringe) 10 ml IV Q8 [facility] Last Admin: 11/17/22 07:14 Dose: 10 ml Trazodone HCl (Trazodone Hcl 50 Mg Tablet) 25 mg PO HSP PRN PRN Reason: Insomnia A/P Assessment and plan (1) Anemia, normocytic normochromic: Status: Acute (2) Carrie-prosthetic femoral shaft fracture: Status: Acute (3) Hypertension: Status: Chronic (4) COPD (chronic obstructive pulmonary disease): Status: Chronic Qualifiers: COPD type: chronic bronchitis Chronic bronchitis type: simple Qualified Code(s): J41.0 - Simple chronic bronchitis Narrative A/P Narrative: Assessment and Plans: 1. Right hip fracture: Inpatient PCU s/p ORIF and old hardware removal by orthopedic surgeons Dr. Shi on 11/16. Estimated blood loss 1200 cc. Status post 2 unit PRBC transfusions on the evening of surgery, will give another 2 unit PRBC this morning. We will do serial H&H to trend. Hold off aspirin and Plavix Tylenol Toradol Oxycodone Morphine Incentive spirometry LR@100cc/hr Physical therapy evaluation and treatment Occupational Therapy evaluation and treatment 2. Postoperative anemia: Status post 2 unit PRBC transfusions on the evening of surgery, will give another 2 unit PRBC this morning. We will do serial H&H to trend. Hold off aspirin and Plavix 3. h/o essential hypertension: Hold off Norvasc for now due to postoperative hypotension 4. COPD, stable: Supplemental oxygen therapy titrate to achieve SPO2 above 88 to 92% Trelegy Ellipta DuoNEB GI ppx: Not currently indicated DVT ppx: SCDs Code status: Full Prognosis: guarded Disposition: inpatient PCU; PT OT Time Spent With Patient Time: Total time spent is greater than 50% in coordination of care (as documented) at patient's floor/unit and/or counseling patient: Subsequent: Total time with patient: 35 - 49 minutes
[2022-11-17] MEDS: KETOROLAC 30 MG/ML VIAL IV PRN ×2 (15:30→20:51)
--- NOTE | 2022-11-17 16:15 | Orthopedic Progress Note ---
SUBJECTIVE Subjective Patient information: Note initiated : 11/17/22 at 4:12 pm Service Date, if different from initiated Date: [] Patient: Brianna Layne 82 y/o F admitted on 11/16/22 for Right Open Reduction & Internal Fixation of. Chief Complaint: No c/o. Constitutional Vitals: Vital Signs Temp Pulse Resp BP Pulse Ox O2 Del Method O2 Flow Rate 98.1 F 79 14 110/53 97 Nasal Cannula 2 11/17/22 15:17 11/17/22 11:57 11/17/22 15:17 11/17/22 15:04 11/17/22 14:00 11/17/22 15:17 11/17/22 15:17 Period Temp Pulse Resp BP Sys/Hernandez Pulse Ox O2 Del Method O2 Flow Rate Last 24 Hr 95.7 F-98.9 F 34-96 - 75-119/40-58 2-100 Nasal Cannula- Oxymask 2-10 Intake and Output 11/17/22 11/17/22 11/17/22 03:59 11:59 19:59 Intake Total 4903 875 1330 Output Total 1275 475 Balance 3628 400 1330 Weight 129 lb 2 oz 129 lb 2 oz Patient Weight 11/18/22 03:59 Weight 129 lb 2 oz Intake & Output: Intake & Output 11/17/22 11/17/22 11/17/22 03:59 11:59 19:59 Intake Total 4903 875 1330 Output Total 1275 475 Balance 3628 400 1330 Weight 129 lb 2 oz 129 lb 2 oz Intake: IV 1903 65 1000 Sodium Chloride 0.9% 1,000 ml @ 1000 Wide Open IV BOLUS ONE Rx#: [id number] Lactated Ringers 1,000 ml @ 683 760 0309 mls/hr IV .Q10H [facility] Rx#: [id number] Oral 480 Blood Product 330 330 IV - Manual Only 3000 Output: Urine Catheter Amount 275 475 Estimated Blood Loss 1000 Other: Urine Appearance Clear Clear Uretheral (Roldan) Clear Clear Urine Color Dark Lisy Light Lisy Uretheral (Roldan) Yellow Yellow Additional findings Additional findings: Bandages mild bloody dressing proximally. NVI-distal OBJ DATA Labs 11/17/22 05:36 11/17/22 05:36 Labs: Abnormal Lab Results 11/17/22 11/17/22 11/16/22 05:36 05:36 22:13 RBC 2.27 L Hgb 6.6 L* 7.5 L Hct 21.8 L 24.4 L POC Hct MCHC 30.3 L RDW 15.1 H Plt Count 86 L Neut % (Auto) 83.3 H Lymph % (Auto) 8.3 L Lymph # (Auto) 0.55 L Absolute Neutrophils PT INR POC Chloride Chloride 109 H Carbon Dioxide 18 L POC Total CO2 POC BUN POC Creatinine Glucose 129 H POC Glucose Calcium 7.1 L POC WB Ioniz Calcium Total Protein 3.8 L Albumin 2.5 L Globulin 1.3 L 11/16/22 11/16/22 11/16/22 07:22 07:22 00:04 RBC 2.88 L Hgb 8.6 L Hct 26.8 L POC Hct 27.0 L MCHC RDW Plt Count 113 L Neut % (Auto) 84.6 H Lymph % (Auto) 8.1 L Lymph # (Auto) 0.41 L Absolute Neutrophils PT INR POC Chloride 112 H Chloride 109 H Carbon Dioxide 21 L POC Total CO2 19.0 L POC BUN 26 H POC Creatinine 1.3 H Glucose 119 H POC Glucose 161 H Calcium 8.0 L POC WB Ioniz Calcium 1.12 L Total Protein Albumin Globulin 11/15/22 11/15/22 23:59 23:59 RBC 3.15 L Hgb 9.3 L Hct 29.5 L POC Hct MCHC RDW Plt Count Neut % (Auto) 84.1 H Lymph % (Auto) 9.2 L Lymph # (Auto) 0.95 L Absolute Neutrophils 8.71 H PT 16.6 H INR 1.3 H POC Chloride Chloride Carbon Dioxide POC Total CO2 POC BUN POC Creatinine Glucose POC Glucose Calcium POC WB Ioniz Calcium Total Protein Albumin Globulin Meds: Medications Acetaminophen (Acetaminophen 325 Mg Tablet) 650 mg PO Q6HP PRN; Protocol PRN Reason: Per Pain Protocol/Fever > 101 Last Admin: 11/17/22 00:53 Dose: 650 mg Albuterol Sulfate (Albuterol Sulfate 60 Puff Inhaler) 2 puff INH Q6H PRN PRN Reason: shortness of breath or wheezing Albuterol/Ipratropium (Ipratropium/Albuterol 3 Ml Ampul.Neb) 3 ml NEB Q6HRT PRN PRN Reason: Wheezing Stop: 02/23/23 13:38 Bisacodyl (Bisacodyl 10 Mg Supp.Rect) 10 mg OR Q2-3DAYS PRN PRN Reason: Constipation Docusate Sodium (Docusate Sodium 100 Mg Capsule) 100 mg PO BID [facility] Last Admin: 11/17/22 09:19 Dose: Not Given Hydralazine HCl (Hydralazine 20 Mg/Ml Vial) 10 mg IV Q4-6HP PRN PRN Reason: Hypertension Lactated Ringer's (Lactated Ringers) 1,000 mls @ 100 mls/hr IV .Q10H [facility] Last Admin: 11/17/22 15:24 Dose: 100 mls/hr Sodium Chloride (Sodium Chloride 0.9%) 250 mls @ 20 mls/hr IV .[id number] [facility] Stop: 11/17/22 20:44 Last Admin: 11/17/22 09:20 Dose: 20 mls/hr Acetaminophen (Ofirmev) 650 mg in 65 mls @ 130 mls/hr IV Q6HP PRN; Protocol PRN Reason: PAIN/FEVER > 101 Last Infusion: 11/17/22 11:43 Dose: Infused Isosorbide Mononitrate (Isosorbide Mononitrate 30 Mg Tab.Xl.24h) 30 mg PO QDAY [facility] Last Admin: 11/17/22 08:28 Dose: 30 mg Ketorolac Tromethamine (Ketorolac 30 Mg/Ml Vial) 30 mg IV Q6HP PRN PRN Reason: Per Pain Protocol Stop: 11/19/22 10:47 Last Admin: 11/17/22 15:30 Dose: 30 mg Magnesium Hydroxide (Magnesium Hydroxide 30 Ml Oral.Susp) 30 ml PO DAILYP PRN PRN Reason: Constipation Morphine Sulfate (Morphine 4 Mg/Ml Vial) 2 - 6 mg IV Q1HP PRN; Protocol PRN Reason: Per Pain Protocol Last Admin: 11/17/22 09:15 Dose: 2 mg Nitroglycerin (Nitroglycerin 0.4 Mg Tab.Subl) 0.4 mg SL Q5M PRN PRN Reason: Chest Pain Ondansetron HCl (Ondansetron 4 Mg/2 Ml Vial) 4 mg IV Q6HP PRN PRN Reason: Nausea And Vomiting Last Admin: 11/17/22 15:06 Dose: 4 mg Oxycodone HCl (Oxycodone Hcl 5 Mg Tablet) 5 mg PO Q4HP PRN; Protocol PRN Reason: Per Pain Protocol Last Admin: 11/17/22 05:35 Dose: 5 mg Fluticasone- Umeclidinium- Vilanterol [Trelegy Ellipta] Inhaler 1 dose INH DAILY [facility] Last Admin: 11/17/22 09:20 Dose: Not Given Polyethylene Glycol (Polyethylene Glycol 3350 17 Gm Packet) 17 gm PO DAILYP PRN PRN Reason: Constipation Senna (Sennosides 1 Tablet) 2 tab PO HS [facility] Last Admin: 11/17/22 00:21 Dose: Not Given Sodium Biphosphate/Sodium Phosphate (Fleets Adult Enema) 1 dose OR Q3-4DAYS PRN PRN Reason: Constipation Sodium Chloride (0.9 % Sodium Chloride 10 Ml Syringe) 10 ml IV Q8 [facility] Last Admin: 11/17/22 13:14 Dose: 10 ml Trazodone HCl (Trazodone Hcl 50 Mg Tablet) 25 mg PO HSP PRN PRN Reason: Insomnia A/P Assessment and plan (1) Carrie-prosthetic femur fracture at tip of prosthesis: Status: Acute Comment: mobilize with PT f/u 2 weeks at [facility] for staple removal or may remove at SNF 2 weeks post-op. Cont medical management Time Spent With Patient Time: Total time spent is greater than 50% in coordination of care (as documented) at patient's floor/unit and/or counseling patient:
[2022-11-17 19:00] LABS: Hematocrit 27.4 % (34.1-44.9); Hemoglobin 9.2 g/dL (11.2-15.7)
--- NOTE | 2022-11-17 21:24 | Consultation ---
DATE OF CONSULTATION: 11/17/2022 CHIEF COMPLAINT: Right thigh pain. HISTORY OF PRESENT ILLNESS: This is an 82-year-old female with multiple medical comorbidities who tripped over her dog and had immediate right thigh pain after falling to the floor. She was unable to bear weight. She was taken to the emergency department at [facility] and x-rays were taken, which showed a periprosthetic femur fracture at the tip of a prior total hip arthroplasty stem. She did have two cerclage cables also around the femur. She is somewhat of an incomplete historian but it sounds like she had a femur fracture a number of years ago somewhere around 15 years ago, treated with an intramedullary rodding. This was eventually removed and she was given a total hip arthroplasty. She denies any other orthopedic injuries. PAST MEDICAL HISTORY: Positive for coronary artery disease, chronic stable angina, aortic aneurysm, peripheral arterial disease with multiple stents, hypertension, COPD, and dementia. PAST SURGICAL HISTORY: Per the HPI as well as coronary artery stents, partial hysterectomy, leg stents, and tonsillectomy. MEDICATIONS: Amlodipine, clopidogrel, isosorbide mononitrate, nitroglycerin, albuterol, aspirin, fluticasone, and albuterol. ALLERGIES: IODINATED CONTRAST. SOCIAL HISTORY: She lives with her son and is . She quit smoking three years ago with a 92-mmep-emhy history. She drinks alcohol a few times a week. FAMILY HISTORY: Positive for father with heart disease, sister with diabetes, and son with atrial fibrillation. REVIEW SYSTEMS: Negative except per the HPI. PHYSICAL EXAMINATION: VITALS ON ADMISSION: Temperature 98.4, pulse 95, respirations 20, blood pressure 182/68, pulse ox 98% on 2 L nasal cannula. GENERAL: She appears her stated age, in no acute distress. She is oriented to person and place. Mood and affect are appropriate. EXTREMITIES: Inspection of the right lower extremity reveals a long surgical scar over the proximal femur. The second scar over the hip anteriorly. She has exquisite tenderness to palpation, limited range of motion secondary to pain. There is no gross instability noted. She is neurovascularly intact distally. LABORATORY DATA: Her hemoglobin is 9.3. IMAGING: X-ray reviewed, shows a nondisplaced spiral fracture at the tip of a previous hip stem that extends into the femoral shaft. This is nondisplaced. There is profound osteopenia and there are two cerclage cables around a total hip stem, which proximally has a very thin bone. IMPRESSION: Right closed periprosthetic femur fracture in an 82-year-old female with profound osteoporosis but what appears to be a stable hip stem. PLAN: I recommend proceeding with open treatment and internal fixation of the periprosthetic femur fracture. Risks of surgery include, but are not limited to, bleeding, possibly requiring transfusion, particularly given the low starting hemoglobin and this being a bloody surgery, ____, infection, possibly requiring implant removal and prolonged IV antibiotics; injury to nerves, blood vessels, other surrounding structures, anesthetic risks, nonunion or malunion of the fracture, failure of hardware fixation, this being particularly high risk given her profound osteoporosis, possibility of needing further surgery. She voiced understanding and wished to proceed. We will proceed as cleared by hospitalist. BJB:alyssa Job ID: [id number] Doc ID: [id number] Mega Shi MD
[2022-11-18] MEDS: LACTATED RINGERS 1,000 ML IV SCH ×2 (01:16→04:45)
[2022-11-18] MEDS: ACETAMINOPHEN 325 MG TABLET PO PRN ×3 (03:00→19:07)
[2022-11-18] MEDS: KETOROLAC 30 MG/ML VIAL IV PRN ×3 (03:01→19:07)
[2022-11-18] MEDS: 0.9 % SODIUM CHLORIDE 10 ML SYRINGE IV SCH ×4 (03:01→20:03)
[2022-11-18 06:27] LABS: Basophils # (Auto) 0.01 K/mcL (0.00-0.30); Basophils % (Auto) 0.2 % (0.0-2.0); Eosinophils # (Auto) 0.08 K/mcL (0.00-0.70); Eosinophils % (Auto) 1.6 % (0.0-7.0); Hematocrit 27.4 % (34.1-44.9); Hemoglobin 9.1 g/dL (11.2-15.7); Lymphocytes # (Auto) 0.39 K/mcL (1.50-4.80); Lymphocytes % (Auto) 7.6 % (15.5-49.0); Mean Cell Volume 90.7 fL (80.0-100.0); Mean Corpuscular HGB Conc 33.2 g/dL (31.0-36.0); Mean Platelet Volume 11.1 fL (8.8-12.5); Monocytes # (Auto) 0.43 K/mcL (0.10-0.90); Monocytes % (Auto) 8.4 % (1.0-12.0); Platelet Count 65 K/mcL (140-440); RBC 3.02 M/mcL (3.59-5.38); Red Cell Distribution Width 15.3 % (11.5-14.5); WBC 5.1 K/mcL (4.5-11.0)
[2022-11-18 06:42] LABS: ALT/SGPT < 5 U/L (<40); AST/SGOT 28 U/L (<32); Albumin 2.5 gm/dL (3.2-5.2); Albumin/Globulin Ratio 1.5 (1.0-2.3); Alkaline Phosphatase 63 U/L (39-117); Bilirubin,Total 0.3 mg/dL (0.1-1.0); Blood Urea Nitrogen 27 mg/dL (8-23); Calcium 7.2 mg/dL (8.6-10.4); Carbon Dioxide 21 mmol/L (22-30); Chloride 104 mmol/L (96-108); Globulin 1.7 gm/dL (2.2-3.7); Glomerular Filtration Rate 38; Glucose 108 mg/dL (70-105)
--- NOTE | 2022-11-18 07:51 | Orthopedic Progress Note ---
SUBJECTIVE Subjective Patient information: Note initiated : 11/18/22 at 7:50 am Service Date, if different from initiated Date: [] Patient: Brianna Layne 82 y/o F admitted on 11/16/22 for Right Open Reduction & Internal Fixation of. Chief Complaint: Mild pain Constitutional Vitals: Vital Signs Temp Pulse Resp BP Pulse Ox O2 Del Method O2 Flow Rate 99.7 F H 102 H 16 118/57 95 Nasal Cannula 4 11/18/22 04:01 11/18/22 04:01 11/18/22 07:06 11/18/22 06:06 11/18/22 07:06 11/18/22 04:01 11/18/22 04:01 Period Temp Pulse Resp BP Sys/Hernandez Pulse Ox O2 Del Method O2 Flow Rate Last 24 Hr 97.9 F-100.6 F 79-105 07-14 76-118/46-58 91-99 Nasal Cannula- Nasal Cannula 2-4 Intake and Output 11/17/22 11/18/22 11/18/22 19:59 03:59 11:59 Intake Total 2148 1187 200 Output Total 125 275 Balance 2022 912 200 Weight 135 lb 9.6 oz Intake & Output: Intake & Output 11/17/22 11/18/22 11/18/22 19:59 03:59 11:59 Intake Total 2148 1187 200 Output Total 125 275 Balance 2022 912 200 Weight 135 lb 9.6 oz Intake: IV 1158 987 Sodium Chloride 0.9% 250 ml @ 93 20 mls/hr IV .[id number] GIFTY Rx#: [id number] Lactated Ringers 1,000 ml @ 100 1000 987 mls/hr IV .Q10H GIFTY Rx#: [id number] Oral 660 200 200 Blood Product 330 Output: Urine Catheter Amount 125 275 Other: Meal Dinner Percent of Meal Consumed 50% Urine Appearance Clear Clear Uretheral (Roldan) Clear Urine Color Yellow Dark Yellow Uretheral (Roldan) Dark Yellow Stool Size Moderate Stool Color Brown Stool Consistency Liquid Loose # Bowel Movements 1 Additional findings Additional findings: Mild bloody drainage on bandages, unchanged since yesterday OBJ DATA Labs 11/18/22 05:10 11/18/22 05:10 Labs: Abnormal Lab Results 11/18/22 11/18/22 11/17/22 05:10 05:10 18:07 RBC 3.02 L Hgb 9.1 L 9.2 L Hct 27.4 L 27.4 L POC Hct MCHC RDW 15.3 H Plt Count 65 L Neut % (Auto) 82.0 H Lymph % (Auto) 7.6 L Lymph # (Auto) 0.39 L Absolute Neutrophils PT INR Sodium 132 L POC Chloride Chloride Carbon Dioxide 21 L POC Total CO2 Anion Gap 7.0 L POC BUN BUN 27 H Creatinine 1.3 H POC Creatinine Glucose 108 H POC Glucose Calcium 7.2 L POC WB Ioniz Calcium Total Protein 4.2 L Albumin 2.5 L Globulin 1.7 L 11/17/22 11/17/22 11/16/22 05:36 05:36 22:13 RBC 2.27 L Hgb 6.6 L* 7.5 L Hct 21.8 L 24.4 L POC Hct MCHC 30.3 L RDW 15.1 H Plt Count 86 L Neut % (Auto) 83.3 H Lymph % (Auto) 8.3 L Lymph # (Auto) 0.55 L Absolute Neutrophils PT INR Sodium POC Chloride Chloride 109 H Carbon Dioxide 18 L POC Total CO2 Anion Gap POC BUN BUN Creatinine POC Creatinine Glucose 129 H POC Glucose Calcium 7.1 L POC WB Ioniz Calcium Total Protein 3.8 L Albumin 2.5 L Globulin 1.3 L 11/16/22 11/16/22 11/16/22 07:22 07:22 00:04 RBC 2.88 L Hgb 8.6 L Hct 26.8 L POC Hct 27.0 L MCHC RDW Plt Count 113 L Neut % (Auto) 84.6 H Lymph % (Auto) 8.1 L Lymph # (Auto) 0.41 L Absolute Neutrophils PT INR Sodium POC Chloride 112 H Chloride 109 H Carbon Dioxide 21 L POC Total CO2 19.0 L Anion Gap POC BUN 26 H BUN Creatinine POC Creatinine 1.3 H Glucose 119 H POC Glucose 161 H Calcium 8.0 L POC WB Ioniz Calcium 1.12 L Total Protein Albumin Globulin 11/15/22 11/15/22 23:59 23:59 RBC 3.15 L Hgb 9.3 L Hct 29.5 L POC Hct MCHC RDW Plt Count Neut % (Auto) 84.1 H Lymph % (Auto) 9.2 L Lymph # (Auto) 0.95 L Absolute Neutrophils 8.71 H PT 16.6 H INR 1.3 H Sodium POC Chloride Chloride Carbon Dioxide POC Total CO2 Anion Gap POC BUN BUN Creatinine POC Creatinine Glucose POC Glucose Calcium POC WB Ioniz Calcium Total Protein Albumin Globulin Meds: Medications Acetaminophen (Acetaminophen 325 Mg Tablet) 650 mg PO Q6HP PRN; Protocol PRN Reason: Per Pain Protocol/Fever > 101 Last Admin: 11/18/22 03:00 Dose: 650 mg Albuterol Sulfate (Albuterol Sulfate 60 Puff Inhaler) 2 puff INH Q6H PRN PRN Reason: shortness of breath or wheezing Albuterol/Ipratropium (Ipratropium/Albuterol 3 Ml Ampul.Neb) 3 ml NEB Q6HRT PRN PRN Reason: Wheezing Stop: 02/23/23 13:38 Bisacodyl (Bisacodyl 10 Mg Supp.Rect) 10 mg MT Q2-3DAYS PRN PRN Reason: Constipation Docusate Sodium (Docusate Sodium 100 Mg Capsule) 100 mg PO BID [facility] Last Admin: 11/17/22 20:51 Dose: 100 mg Hydralazine HCl (Hydralazine 20 Mg/Ml Vial) 10 mg IV Q4-6HP PRN PRN Reason: Hypertension Lactated Ringer's (Lactated Ringers) 1,000 mls @ 100 mls/hr IV .Q10H [facility] Last Admin: 11/18/22 04:45 Dose: Not Given Acetaminophen (Ofirmev) 650 mg in 65 mls @ 130 mls/hr IV Q6HP PRN; Protocol PRN Reason: PAIN/FEVER > 101 Last Infusion: 11/17/22 18:02 Dose: Infused Isosorbide Mononitrate (Isosorbide Mononitrate 30 Mg Tab.Xl.24h) 30 mg PO QDAY [facility] Last Admin: 11/17/22 08:28 Dose: 30 mg Ketorolac Tromethamine (Ketorolac 30 Mg/Ml Vial) 30 mg IV Q6HP PRN PRN Reason: Per Pain Protocol Stop: 11/19/22 10:47 Last Admin: 11/18/22 03:01 Dose: 30 mg Magnesium Hydroxide (Magnesium Hydroxide 30 Ml Oral.Susp) 30 ml PO DAILYP PRN PRN Reason: Constipation Morphine Sulfate (Morphine 4 Mg/Ml Vial) 2 - 6 mg IV Q1HP PRN; Protocol PRN Reason: Per Pain Protocol Last Admin: 11/17/22 09:15 Dose: 2 mg Nitroglycerin (Nitroglycerin 0.4 Mg Tab.Subl) 0.4 mg SL Q5M PRN PRN Reason: Chest Pain Ondansetron HCl (Ondansetron 4 Mg/2 Ml Vial) 4 mg IV Q6HP PRN PRN Reason: Nausea And Vomiting Last Admin: 11/17/22 15:06 Dose: 4 mg Oxycodone HCl (Oxycodone Hcl 5 Mg Tablet) 5 mg PO Q4HP PRN; Protocol PRN Reason: Per Pain Protocol Last Admin: 11/17/22 05:35 Dose: 5 mg Fluticasone- Umeclidinium- Vilanterol [Trelegy Ellipta] Inhaler 1 dose INH DAILY [facility] Last Admin: 11/17/22 09:20 Dose: Not Given Polyethylene Glycol (Polyethylene Glycol 3350 17 Gm Packet) 17 gm PO DAILYP PRN PRN Reason: Constipation Senna (Sennosides 1 Tablet) 2 tab PO [facility] Last Admin: 11/17/22 20:46 Dose: Not Given Sodium Biphosphate/Sodium Phosphate (Fleets Adult Enema) 1 dose MT Q3-4DAYS PRN PRN Reason: Constipation Sodium Chloride (0.9 % Sodium Chloride 10 Ml Syringe) 10 ml IV Q8 [facility] Last Admin: 11/18/22 04:47 Dose: Not Given Trazodone HCl (Trazodone Hcl 50 Mg Tablet) 25 mg PO HSP PRN PRN Reason: Insomnia A/P Time Spent With Patient Time: Total time spent is greater than 50% in coordination of care (as documented) at patient's floor/unit and/or counseling patient:
[2022-11-18] MEDS: DOCUSATE SODIUM 100 MG CAPSULE PO SCH ×2 (08:45→20:02)
[2022-11-18] MEDS: ISOSORBIDE MONONITRATE 30 MG TAB.XL.24H PO SCH (08:45)
[2022-11-18] MEDS: Fluticasone-Umeclidinium-Vilanterol [Trelegy Ellipta] Inhaler INH SCH (08:45)
--- NOTE | 2022-11-18 09:52 | EKG ---
[facility] Test Date: 2022-11-16 Pat Name: Brianna Layne Department: ED Room: Gender: Female Government Services Professional: : 1940 Requested By: Dontae Rodriguez Order Number: [id number] Reading MD: Sharyn Dotson D.O. Measurements Intervals [place] Rate: 64 P: 78 LA: 137 QRS: 80 QRSD: 99 T: 85 QT: 466 QTc: 481 Interpretive Statements Sinus rhythm ST depression, consider ischemia, lateral leads Electronically Signed On 11-18-2022 9:52:12 PDT by Sharyn Dotson D.O. /store/[email or web address]/[id number]
--- NOTE | 2022-11-18 11:04 | Internal Med Progress Note ---
SUBJECTIVE Subjective Patient information: Note initiated : 11/18/22 at 10:58 am Service Date, if different from initiated Date: [] Patient: Brianna Layne 82 y/o F admitted on 11/16/22 for Right Open Reduction & Internal Fixation of. Chief Complaint: [] Interval history: Ms. Layne is a 82 year old pleasant female with history of CAD status post PCI, chronic stable angina, aortic aneurysm, peripheral arterial disease with multiple stents in right lower extremity, hypertension, COPD not on oxygen therapy, presented after a mechanical fall. She lives with her son, renovations are done at home. Patient tripped over her dog falling onto the hardwood floor and immediately had right thigh pain. Patient did not lose any consciousness. Patient has history of right hip arthroplasty after a fall 20 years ago. X-ray right leg showed nondisplaced periprosthetic fracture of right femoral diaphysis. Currently patient reports pain is not controlled. Dr. Shi from [facility] is planning for surgery today. Patient is NPO. 11/17: s/p ORIF and old hardware removal by orthopedic surgeons Dr. Shi on 11/16. Estimated blood loss 1200 cc. Status post 2 unit PRBC transfusions yesterday and evening, and hemoglobin hematocrit this morning 6.6/21.8. Also soft blood pressure with MAP 60 mmHg this morning. Patient is coming of 9 out of 10 right hip pain. She is on 2 L/min nasal cannula oxygen and she denies any shortness of breath. She has poor appetite but denies any nausea or vomiting. She has no bowel movement yet since the surgery. Transferred to stepdown ICU. Transfuse another 2 unit PRBC. We will recheck H&H this evening. Continue LR at 100 cc/h for volume support. Encourage patient to eat and drink. We will add nonnarcotics for pain control including IV Tylenol and Toradol. DC Norvasc due to soft blood pressure. Physical and occupational therapy evaluation and treatment. Overall condition is guarded. 11/18: Hemoglobin and hematocrit 9.1 and 27.4, respectively. Latest blood pressure 106 over 55 mmHg this morning. Patient is on 2 L/min nasal cannula oxygen. She has a restful night. She is complaining of moderate to severe pain of her right hip. She has not have a bowel movement overnight. Orthopedic surgery teams already signed off the patient. Transfer the patient back to [facility]. Saline lock the patient's. DC Roldan catheter. Continue to provide narcotics as needed for postsurgical pain controlled. Still holding aspirin and Plavix and will resume likely at time of discharge. Still holding Norvasc due to borderline blood pressure. Pending physical therapy and Occupational Therapy official recommendations regarding placement. Constitutional Vitals: Vital Signs Temp Pulse Resp BP Pulse Ox O2 Del Method O2 Flow Rate 37.1 C 103 H 19 106/55 94 Nasal Cannula 2 11/18/22 07:59 11/18/22 10:05 11/18/22 10:05 11/18/22 09:14 11/18/22 10:35 11/18/22 10:35 11/18/22 10:35 Period Temp Pulse Resp BP Sys/Hernandez Pulse Ox O2 Del Method O2 Flow Rate Last 24 Hr 36.6 C-38.1 C 79-105 11-22 76-118/48-58 91-99 Nasal Cannula- Nasal Cannula 2-4 Intake and Output 11/17/22 11/18/22 11/18/22 19:59 03:59 11:59 Intake Total 2148 1187 1123 Output Total 125 275 Balance 2022 91 1123 Weight 61.507 kg Intake & Output: Intake & Output 11/17/22 11/18/22 11/18/22 19:59 03:59 11:59 Intake Total 2148 1187 1123 Output Total 125 275 Balance 2022 912 1123 Weight 61.507 kg Intake: IV 1158 987 923 Sodium Chloride 0.9% 250 ml @ 93 20 mls/hr IV .[id number] GIFTY Rx#: [id number] Lactated Ringers 1,000 ml @ 100 1000 987 923 mls/hr IV .Q10H GIFTY Rx#: [id number] Oral 660 200 200 Blood Product 330 Output: Urine Catheter Amount 125 275 Other: Meal Dinner Breakfast Percent of Meal Consumed 50% 50% Feeding Ability Independent Urine Appearance Clear Clear Uretheral (Roldan) Clear Clear Urine Color Yellow Dark Yellow Uretheral (Roldan) Dark Yellow Yellow Stool Size Moderate Stool Color Brown Stool Consistency Liquid Loose # Bowel Movements 1 Head Head exam: Present atraumatic and normal inspection Eye Eye exam: Present normal appearance ENT ENT exam: Present mucous membranes moist, normal exam and normal external ear e xam Additional comments: Nasal cannula in place Neck Neck exam: Present normal inspection Respiratory Respiratory exam: Present normal respiratory exam Cardiovascular Cardiovascular exam: Present normal rate and rhythm GI/Abdominal GI/Abdominal exam: Present normal bowel sounds Extremities Exam Extremities exam: Present tenderness; Absent full ROM or normal inspection Additional comments: Right lateral hip covered by surgical dressing Back Exam Back exam: Present normal inspection Neurological Exam Neurological exam: Present alert and oriented X3 Skin Skin exam: Present intact and warm OBJ DATA Labs 11/18/22 05:10 11/18/22 05:10 Labs: Abnormal Lab Results 11/18/22 11/18/22 11/17/22 05:10 05:10 18:07 RBC 3.02 L Hgb 9.1 L 9.2 L Hct 27.4 L 27.4 L POC Hct MCHC RDW 15.3 H Plt Count 65 L Neut % (Auto) 82.0 H Lymph % (Auto) 7.6 L Lymph # (Auto) 0.39 L Absolute Neutrophils PT INR Sodium 132 L POC Chloride Chloride Carbon Dioxide 21 L POC Total CO2 Anion Gap 7.0 L POC BUN BUN 27 H Creatinine 1.3 H POC Creatinine Glucose 108 H POC Glucose Calcium 7.2 L POC WB Ioniz Calcium Total Protein 4.2 L Albumin 2.5 L Globulin 1.7 L 11/17/22 11/17/22 11/16/22 05:36 05:36 22:13 RBC 2.27 L Hgb 6.6 L* 7.5 L Hct 21.8 L 24.4 L POC Hct MCHC 30.3 L RDW 15.1 H Plt Count 86 L Neut % (Auto) 83.3 H Lymph % (Auto) 8.3 L Lymph # (Auto) 0.55 L Absolute Neutrophils PT INR Sodium POC Chloride Chloride 109 H Carbon Dioxide 18 L POC Total CO2 Anion Gap POC BUN BUN Creatinine POC Creatinine Glucose 129 H POC Glucose Calcium 7.1 L POC WB Ioniz Calcium Total Protein 3.8 L Albumin 2.5 L Globulin 1.3 L 11/16/22 11/16/22 11/16/22 07:22 07:22 00:04 RBC 2.88 L Hgb 8.6 L Hct 26.8 L POC Hct 27.0 L MCHC RDW Plt Count 113 L Neut % (Auto) 84.6 H Lymph % (Auto) 8.1 L Lymph # (Auto) 0.41 L Absolute Neutrophils PT INR Sodium POC Chloride 112 H Chloride 109 H Carbon Dioxide 21 L POC Total CO2 19.0 L Anion Gap POC BUN 26 H BUN Creatinine POC Creatinine 1.3 H Glucose 119 H POC Glucose 161 H Calcium 8.0 L POC WB Ioniz Calcium 1.12 L Total Protein Albumin Globulin 11/15/22 11/15/22 23:59 23:59 RBC 3.15 L Hgb 9.3 L Hct 29.5 L POC Hct MCHC RDW Plt Count Neut % (Auto) 84.1 H Lymph % (Auto) 9.2 L Lymph # (Auto) 0.95 L Absolute Neutrophils 8.71 H PT 16.6 H INR 1.3 H Sodium POC Chloride Chloride Carbon Dioxide POC Total CO2 Anion Gap POC BUN BUN Creatinine POC Creatinine Glucose POC Glucose Calcium POC WB Ioniz Calcium Total Protein Albumin Globulin Meds: Medications Acetaminophen (Acetaminophen 325 Mg Tablet) 650 mg PO Q6HP PRN; Protocol PRN Reason: Per Pain Protocol/Fever > 101 Last Admin: 11/18/22 08:45 Dose: 650 mg Albuterol Sulfate (Albuterol Sulfate 60 Puff Inhaler) 2 puff INH Q6H PRN PRN Reason: shortness of breath or wheezing Albuterol/Ipratropium (Ipratropium/Albuterol 3 Ml Ampul.Neb) 3 ml NEB Q6HRT PRN PRN Reason: Wheezing Stop: 02/23/23 13:38 Bisacodyl (Bisacodyl 10 Mg Supp.Rect) 10 mg SC Q2-3DAYS PRN PRN Reason: Constipation Docusate Sodium (Docusate Sodium 100 Mg Capsule) 100 mg PO BID [facility] Last Admin: 11/18/22 08:45 Dose: 100 mg Hydralazine HCl (Hydralazine 20 Mg/Ml Vial) 10 mg IV Q4-6HP PRN PRN Reason: Hypertension Acetaminophen (Ofirmev) 650 mg in 65 mls @ 130 mls/hr IV Q6HP PRN; Protocol PRN Reason: PAIN/FEVER > 101 Last Infusion: 11/17/22 18:02 Dose: Infused Isosorbide Mononitrate (Isosorbide Mononitrate 30 Mg Tab.Xl.24h) 30 mg PO QDAY [facility] Last Admin: 11/18/22 08:45 Dose: 30 mg Ketorolac Tromethamine (Ketorolac 30 Mg/Ml Vial) 30 mg IV Q6HP PRN PRN Reason: Per Pain Protocol Stop: 11/19/22 10:47 Last Admin: 11/18/22 09:25 Dose: 30 mg Magnesium Hydroxide (Magnesium Hydroxide 30 Ml Oral.Susp) 30 ml PO DAILYP PRN PRN Reason: Constipation Morphine Sulfate (Morphine 4 Mg/Ml Vial) 2 - 6 mg IV Q1HP PRN; Protocol PRN Reason: Per Pain Protocol Last Admin: 11/17/22 09:15 Dose: 2 mg Nitroglycerin (Nitroglycerin 0.4 Mg Tab.Subl) 0.4 mg SL Q5M PRN PRN Reason: Chest Pain Ondansetron HCl (Ondansetron 4 Mg/2 Ml Vial) 4 mg IV Q6HP PRN PRN Reason: Nausea And Vomiting Last Admin: 11/17/22 15:06 Dose: 4 mg Oxycodone HCl (Oxycodone Hcl 5 Mg Tablet) 5 mg PO Q4HP PRN; Protocol PRN Reason: Per Pain Protocol Last Admin: 11/17/22 05:35 Dose: 5 mg Fluticasone- Umeclidinium- Vilanterol [Trelegy Ellipta] Inhaler 1 dose INH DAILY [facility] Last Admin: 11/18/22 08:45 Dose: Not Given Polyethylene Glycol (Polyethylene Glycol 3350 17 Gm Packet) 17 gm PO DAILYP PRN PRN Reason: Constipation Senna (Sennosides 1 Tablet) 2 tab PO HS [facility] Last Admin: 11/17/22 20:46 Dose: Not Given Sodium Biphosphate/Sodium Phosphate (Fleets Adult Enema) 1 dose SC Q3-4DAYS PRN PRN Reason: Constipation Sodium Chloride (0.9 % Sodium Chloride 10 Ml Syringe) 10 ml IV Q8 [facility] Last Admin: 11/18/22 04:47 Dose: Not Given Trazodone HCl (Trazodone Hcl 50 Mg Tablet) 25 mg PO HSP PRN PRN Reason: Insomnia A/P Assessment and plan (1) Anemia, normocytic normochromic: Status: Acute (2) Carrie-prosthetic femoral shaft fracture: Status: Acute (3) Hypertension: Status: Chronic (4) COPD (chronic obstructive pulmonary disease): Status: Chronic Qualifiers: COPD type: chronic bronchitis Chronic bronchitis type: simple Qualified Code(s): J41.0 - Simple chronic bronchitis Narrative A/P Narrative: Assessment and Plans: 1. Right hip fracture: Inpatient med surg s/p ORIF and old hardware removal by orthopedic surgeons Dr. Shi on 11/16. Estimated blood loss 1200 cc. Status post 2 unit PRBC transfusions on the evening of surgery, will give another 2 unit PRBC this morning. We will do serial H&H to trend. Hold off aspirin and Plavix; resume at time of hospital discharge Tylenol Toradol Oxycodone Morphine Incentive spirometry Saline lock Physical therapy evaluation and treatment Occupational Therapy evaluation and treatment 2. Postoperative anemia: Status post 2 unit PRBC transfusions on the evening of surgery, will give another 2 unit PRBC this morning. We will do serial H&H to trend. Hold off aspirin and Plavix; resume at time of hospital discharge 3. h/o essential hypertension: Hold off Norvasc for now due to postoperative hypotension 4. COPD, stable: Supplemental oxygen therapy titrate to achieve SPO2 above 88 to 92% Trelesivakumar Ellipta DuoNEB GI ppx: Not currently indicated DVT ppx: SCDs Code status: Full Prognosis: Stable Disposition: inpatient med surg; PT OT Time Spent With Patient Time: Total time spent is greater than 50% in coordination of care (as documented) at patient's floor/unit and/or counseling patient: Subsequent: Total time with patient: 35 - 49 minutes
[2022-11-18] MEDS: SENNOSIDES 1 TABLET PO SCH (20:02)
[2022-11-19] MEDS: KETOROLAC 30 MG/ML VIAL IV PRN (03:23)
[2022-11-19] MEDS: 0.9 % SODIUM CHLORIDE 10 ML SYRINGE IV SCH ×2 (04:32→13:33)
[2022-11-19 06:24] LABS: Basophils # (Auto) 0 K/mcL (0.00-0.30); Basophils % (Auto) 0 % (0.0-2.0); Eosinophils # (Auto) 0.07 K/mcL (0.00-0.70); Eosinophils % (Auto) 1.7 % (0.0-7.0); Hematocrit 23.5 % (34.1-44.9); Hemoglobin 7.7 g/dL (11.2-15.7); Lymphocytes # (Auto) 0.44 K/mcL (1.50-4.80); Lymphocytes % (Auto) 10.7 % (15.5-49.0); Mean Cell Volume 91.1 fL (80.0-100.0); Mean Corpuscular HGB Conc 32.8 g/dL (31.0-36.0); Mean Platelet Volume 11.1 fL (8.8-12.5); Monocytes # (Auto) 0.44 K/mcL (0.10-0.90); Monocytes % (Auto) 10.7 % (1.0-12.0); Neutrophils % (Auto) 76.7 % (38.0-78.0); Platelet Count 77 K/mcL (140-440); RBC 2.58 M/mcL (3.59-5.38); Red Cell Distribution Width 15.3 % (11.5-14.5); WBC 4.1 K/mcL (4.5-11.0)
[2022-11-19 06:40] LABS: ALT/SGPT < 5 U/L (<40); AST/SGOT 27 U/L (<32); Albumin 2.4 gm/dL (3.2-5.2); Albumin/Globulin Ratio 1.3 (1.0-2.3); Alkaline Phosphatase 61 U/L (39-117); Bilirubin,Total 0.3 mg/dL (0.1-1.0); Blood Urea Nitrogen 29 mg/dL (8-23); Calcium 7.3 mg/dL (8.6-10.4); Carbon Dioxide 21 mmol/L (22-30); Chloride 106 mmol/L (96-108); Globulin 1.9 gm/dL (2.2-3.7); Glomerular Filtration Rate 46; Glucose 96 mg/dL (70-105)
[2022-11-19] MEDS: ACETAMINOPHEN 325 MG TABLET PO PRN ×2 (09:02→13:33)
[2022-11-19] MEDS: DOCUSATE SODIUM 100 MG CAPSULE PO SCH (09:02)
[2022-11-19] MEDS: Fluticasone-Umeclidinium-Vilanterol [Trelegy Ellipta] Inhaler INH SCH (09:03)
[2022-11-19] MEDS: ISOSORBIDE MONONITRATE 30 MG TAB.XL.24H PO SCH (09:03)
--- NOTE | 2022-11-19 14:42 | Discharge Summary ---
Discharge Provider Provider IMPORTANT FOLLOW-UP INFORMATION FOR PCP: Patient information: Note initiated : 11/19/22 at 2:39 pm Service Date, if different from initiated Date: [] Patient: Brianna Layne 82 y/o F admitted on 11/16/22 for Right Open Reduction & Internal Fixation of. Chief Complaint: [] Date of admission: 11/16/22 03:00 Discharge date: 11/19/22 Primary care physician: Gabriel Cobb Attending physician on admission: Ed Eldridge Consults: 11/16/22 Consult to Physician [CONS] Stat Comment: Consulting Provider: Mega Shi Reason For Exam: Physician to Consult Consult to Physician [CONS] Stat Comment: Consulting Provider: Ed Eldridge Reason For Exam: Physician to Consult 11/19/22 13:25 Consult to Physician [CONS] Routine Comment: SNF referral Consulting Provider: [facility] Reason For Exam: Physician to Consult Attending physician on discharge: Chi Carlito Pui COURSE Hospital Course Hospital course: Ms. Layne is a 82 year old pleasant female with history of CAD status post PCI, chronic stable angina, aortic aneurysm, peripheral arterial disease with multiple stents in right lower extremity, hypertension, COPD not on oxygen therapy, presented after a mechanical fall. She lives with her son, renovations are done at home. Patient tripped over her dog falling onto the hardwood floor and immediately had right thigh pain. Patient did not lose any consciousness. Patient has history of right hip arthroplasty after a fall 20 years ago. X-ray right leg showed nondisplaced periprosthetic fracture of right femoral diaphysis. Currently patient reports pain is not controlled. Dr. Shi from [facility] is planning for surgery today. Patient is NPO. 11/17: s/p ORIF and old hardware removal by orthopedic surgeons Dr. Shi on 11/16. Estimated blood loss 1200 cc. Status post 2 unit PRBC transfusions yesterday and evening, and hemoglobin hematocrit this morning 6.6/21.8. Also soft blood pressure with MAP 60 mmHg this morning. Patient is coming of 9 out of 10 right hip pain. She is on 2 L/min nasal cannula oxygen and she denies any shortness of breath. She has poor appetite but denies any nausea or vomiting. She has no bowel movement yet since the surgery. Transferred to stepdown ICU. Transfuse another 2 unit PRBC. We will recheck H&H this evening. Continue LR at 100 cc/h for volume support. Encourage patient to eat and drink. We will add nonnarcotics for pain control including IV Tylenol and Toradol. DC Norvasc due to soft blood pressure. Physical and occupational therapy evaluation and treatment. Overall condition is guarded. 11/18: Hemoglobin and hematocrit 9.1 and 27.4, respectively. Latest blood pressure 106 over 55 mmHg this morning. Patient is on 2 L/min nasal cannula oxygen. She has a restful night. She is complaining of moderate to severe pain of her right hip. She has not have a bowel movement overnight. Orthopedic surgery teams already signed off the patient. Transfer the patient back to [facility]. Saline lock the patient's. DC [place] catheter. Continue to provide narcotics as needed for postsurgical pain controlled. Still holding aspirin and Plavix and will resume likely at time of discharge. Still holding Norvasc due to borderline blood pressure. Pending physical therapy and Occupational Therapy official recommendations regarding placement. 11/19: Patient has reached clinical stability. Decision made to discharge patient to SNF. Nonweightbearing right lower extremity for 8 weeks minimum. Follow-up with orthopedic surgery at 4 to 6 weeks postop. All questions answered prior to patient being physically discharged. Discharge diagnosis: Right hip fracture Time Spent with Patient Time attestation: Total time spent providing and/or coordinating discharge services: Time spent: Greater than 30 minutes EXAM Constitutional Vitals: Temp Pulse Resp BP Pulse Ox O2 Del Method O2 Flow Rate 37.7 C H 103 H 16 121/59 97 Nasal Cannula 2 11/19/22 12:11/19/22 12:11/19/22 12:11/19/22 12:11/19/22 12:11/19/22 12:11/19/22 08:00 General appearance: cooperative and no acute distress Head Head exam: Present atraumatic and normocephalic Eye Eye exam: Present EOMI and PERRL ENT ENT exam: Present mucous membranes moist, normal exam and normal external ear exam Neck Neck exam: Present normal inspection; Absent lymphadenopathy, tenderness or thyromegaly Respiratory Respiratory exam: Absent accessory muscle use, respiratory distress or wheezes Cardiovascular Cardiovascular exam: Present normal rate and rhythm; Absent JVD GI/Abdominal GI/Abdominal exam: Present normal bowel sounds and soft; Absent organomegaly or tenderness Extremities Exam Extremities exam: Present normal capillary refill and tenderness; Absent full ROM or normal inspection Additional comments: Right lateral hip covered by surgical dressing Active and passive ROMs limited by pain Neurological Exam Neurological exam: Present alert, CN II-XII intact and oriented X3; Absent motor sensory deficit Psychiatric Psychiatric exam: Present normal affect and normal mood; Absent anxious or depressed Skin Skin exam: Present dry and intact Discharge Data Data Completed and Pending Labs on day of discharge: Labs from last 24 hours 11/19/22 11/19/22 05:10 05:09 WBC 4.1 L RBC 2.58 L Hgb 7.7 L Hct 23.5 L MCV 91.1 MCH 29.8 MCHC 32.8 RDW 15.3 H Plt Count 77 L MPV 11.1 Immature Gran % (Auto) 0.2 Neut % (Auto) 76.7 Lymph % (Auto) 10.7 L [place] % (Auto) 10.7 Eos % (Auto) 1.7 Baso % (Auto) 0 Lymph # (Auto) 0.44 L [place] # (Auto) 0.44 Eos # (Auto) 0.07 Baso # (Auto) 0 Immature Gran # 0.01 Absolute Neutrophils 3.17 Sodium 135 Potassium 4.7 Chloride 106 Carbon Dioxide 21 L Anion Gap 8.0 BUN 29 H Creatinine 1.1 GFR Calculation 46 Glucose 96 Calcium 7.3 L Total Bilirubin 0.3 AST 27 ALT < 5 Alkaline Phosphatase 61 Total Protein 4.3 L Albumin 2.4 L Globulin 1.9 L Albumin/Globulin Ratio 1.3 Discharge Plan Patient/Caregiver Discharge Instructions Instructions: ORIF of a Leg Fracture (DC) Activity Restrictions/Additional Instructions: Non weight bearing on right lower extremity likely 8 weeks minimum, possible indefinitely if fracture does not heal appropriately. You have the silver dressing, leave in place for 7 days then remove. Dry dressing changes daily. You may shower with dressing on, pat dry after shower. Do not scrub this dressing or incision site. No lotions/powders over this dressing or incision sites. You may start showering on post op day #2, TuesdayNovember 20. Discontinue edouard at 14 days post op. Follow up with Dr. Sih 4-6 weeks post op. To avoid constipation while taking any narcotic pain medication, take an over the counter stool softener/laxative. Use your ice packs as directed, on for 20 minutes at a time, throughout the day. Ice and elevation will help with pain and swelling. If you have any questions or concerns call your orthopedic surgeon before going to the emergency room. [facility] has a account installation specialist physician 24 hours per day/7 days per week and can be reached at [phone]. Call for fevers above 100.5 or pain not controlled by medication. Your prescriptions are with your discharge information. Some medications were electronically transmitted to your pharmacy of choice. Take Aspirin as prescribed to prevent blood clots (see medication list). This discharge packet is provided to you to help keep you informed about your care. We want to ensure you get everything you need when you go home. You will also be receiving a call from us in a few days to follow up with you and see how you are doing since your discharge. This gives us a chance to listen to any concerns you maybe experiencing since you were discharged or any additional needs you may have, as well as providing us feedback on your care experience. We strive to always provide excellent care and thank you for your feedback and for choosing [facility]. Prescriptions: New oxycodone 5 mg Tablet 5 mg PO Q4HP PRN (Reason: Per Pain Protocol) Qty: 20 0RF Continued Trelegy Ellipta 100-62.5-25 mcg blister with device 1 inh inhalation Q24H Qty: 60 12RF isosorbide mononitrate 30 mg tablet extended release 24 hr 30 mg PO QDAY nitroglycerin 0.4 mg tablet, sublingual 0.4 mg sublingual Q5M PRN (Reason: Chest Pain) Rx Instructions: do not exceed 3 doses per episode albuterol sulfate 90 mcg/actuation HFA aerosol inhaler 2 puff inhalation Q6H PRN (Reason: shortness of breath or wheezing) Qty: 8.5 2RF Discontinued clopidogrel 75 mg tablet 75 mg PO QDAY aspirin [Adult Low Dose Aspirin] 81 mg tablet,delayed release (DR/EC) 162 mg PO QDAY amlodipine 10 mg tablet 10 mg PO QDAY Follow Up Plan Follow up with: Mega Shi MD [Physician] - (Please call and scheduled a surgical follow up to be seen 4-6 weeks post surgery.) Forrest Arias MD [Physician] - 12/07/22 11:30 am Gabriel Cobb [Primary Care Provider] - (as needed.) Patient Disposition: Xfer SNF Rehab Potential: Good I certify that the patient requires SNF services: Yes Overall status at discharge: patient is progressing back to baseline Discharge Orders: Discharge Order (Routine); Ordered 11/19/22 Ordered By: Burak Robledo
== END 2022-11-19 15:33 | DRG 481 ==
LOC: ED 23:42 → MEDSUR 11-16 03:00 → ICU 11-17 10:15 → MEDSUR 11-18 13:35
PROVIDERS: ADMIT Internal Medicine; ATTEND Internal Medicine